=== PATIENT | female | born 1945 | race Caucasian/White ===

== ENCOUNTER → 2018-05-30 13:31 | Outpatient (CLI) | payer MEDICARE, BC, SELFPAY ==
--- NOTE | 2018-05-30 | DI.MG.S_ITS ---
BILATERAL DIGITAL SCREENING MAMMOGRAM 3D/2D WITH CAD: 05/30/2018 CLINICAL: Screening. Comparison is made to exam dated: 08/31/2011 mammogram - [facility]. The tissue of both breasts is heterogeneously dense. This may lower the sensitivity of mammography. Current study was also evaluated with a Computer Aided Detection (CAD) system. No significant masses, calcifications, or other findings are seen in either breast. There has been no significant interval change. IMPRESSION: NEGATIVE There is no mammographic evidence of malignancy. A 1 year screening mammogram is recommended. This exam was interpreted at Station ID: [id number]. NOTE: For mammograms, a report in lay terms will be sent to the patient. Approximately 15% of breast malignancies will not be visualized mammographically. In the management of a palpable breast mass, a negative mammogram must not discourage biopsy of a clinically suspicious lesion. Electronically Signed By: Vishnu garber/katherin:05/31/2018 09:52:47 letter sent: Normal Exam ACR BI-RADS Category 1: Negative 3341F
== END ==
PROVIDERS: PCP Internal Medicine; Visit Provider Internal Medicine
DX: Z12.31 Encounter for screening mammogram for malignant neoplasm of breast (principal); M85.852 Other specified disorders of bone density and structure, left thigh; Z78.0 Asymptomatic menopausal state
CPT/HCPCS: 77063; 77067; 77080

== ENCOUNTER → 2019-06-21 11:55 | Outpatient (CLI) | payer MEDICARE, SELFPAY ==
--- NOTE | 2019-06-21 | DI.MG.S_ITS ---
BILATERAL DIGITAL SCREENING MAMMOGRAM 3D/2D WITH CAD: 06/21/2019 CLINICAL: Routine screening. Comparison is made to exams dated: 05/30/2018 mammogram - [facility] and 08/31/2011 mammogram - [facility]. The tissue of both breasts is heterogeneously dense. This may lower the sensitivity of mammography. Current study was also evaluated with a Computer Aided Detection (CAD) system. No significant masses, calcifications, or other findings are seen in either breast. There has been no significant interval change. IMPRESSION: NEGATIVE There is no mammographic evidence of malignancy. A 1 year screening mammogram is recommended. This exam was interpreted at Station ID: [id number]. NOTE: For mammograms, a report in lay terms will be sent to the patient. Approximately 15% of breast malignancies will not be visualized mammographically. In the management of a palpable breast mass, a negative mammogram must not discourage biopsy of a clinically suspicious lesion. Electronically Signed By: Nathen weaver/katherin:06/21/2019 16:50:02 letter sent: Normal Exam ACR BI-RADS Category 1: Negative 3341F
== END ==
PROVIDERS: PCP Internal Medicine; Visit Provider Internal Medicine
DX: Z12.31 Encounter for screening mammogram for malignant neoplasm of breast (principal)
CPT/HCPCS: 77063; 77067

== ENCOUNTER → 2019-11-24 14:09 | Outpatient (CLI) | payer MEDICARE, SELFPAY ==
[2019-11-26 00:21] LABS: SARS CoV19 IgG Negative (Negative)
== END ==
PROVIDERS: PCP Internal Medicine; Referring Provider Internal Medicine; Visit Provider Internal Medicine
DX: Z03.818 Encounter for observation for suspected exposure to other biological agents ruled out (principal)
CPT/HCPCS: 36415; 86769

== ENCOUNTER → 2020-01-18 14:21 | Outpatient (CLI) | payer MEDICARE, SELFPAY ==
[2020-01-18 16:43] LABS: Blood Urea Nitrogen 31 mg/dL (7-17); Calcium 9.3 mg/dL (8.4-10.2); Carbon Dioxide 26 mmol/L (22-32); Chloride 107 mmol/L (98-107); Estimated Glomerular Filt Rate 29.1 mL/min (>60); Glucose 72 mg/dL (80-110); HEMOLYSIS < 15 (0-50); Potassium 4.7 mmol/L (3.4-5.1); Sodium 138 mmol/L (137-145)
== END ==
PROVIDERS: PCP Internal Medicine; Referring Provider Internal Medicine; Visit Provider Internal Medicine
DX: N18.3 Chronic kidney disease, stage 3 (moderate) (principal)
CPT/HCPCS: 36415; 80048

== ENCOUNTER → 2020-05-24 10:34 | Outpatient (CLI) | payer MEDICARE, SELFPAY ==
[2020-05-24 11:34] LABS: Add Manual Diff / Slide Review NO; Basophils Absolute Auto 100 /uL (0-100); Basophils Percent Auto 0.8 % (0-2); Eosinophils Absolute Auto 500 /uL (0-450); Eosinophils Percent Auto 6.8 % (2-4); Hematocrit 38.8 % (36-46); Lymphocytes Absolute Auto 2100 /uL (1100-4500); Lymphocytes Percent Auto 32.1 % (25-40); Mean Corpuscular HGB Conc 33.6 % (30-36); Mean Corpuscular Hemoglobin 30.1 PG (26-34); Mean Corpuscular Volume 89.5 fL (80-100); Monocytes Absolute Auto 600 /uL (0-900); Monocytes Percent Auto 8.5 % (3-14); Neutrophils Absolute Auto 3500 /uL (1500-7000); Neutrophils Percent Auto 51.8 % (50-75); Platelet Count 201 X10^3/uL (150-400); Red Blood Cell Count 4.33 X10^6/uL (4.0-5.2); Red Cell Distribution Width 13.5 % (11.6-14.8); White Blood Cell Count 6.7 X10^3/uL (4.5-11.0)
[2020-05-24 11:53] LABS: Creatinine Urine Random 83.6 mg/dL
[2020-05-24 11:55] LABS: Alanine Aminotransferase 41 IU/L (<35); Albumin 4.1 g/dL (3.5-5.0); Albumin Globulin Ratio 1.3 (1.0-2.8); Alkaline Phosphatase 79 U/L (38-126); Aspartate Aminotransferase 46 IU/L (14-36); Bilirubin Total 0.5 mg/dL (0.2-1.3); Blood Urea Nitrogen 26 mg/dL (7-17); Calcium 8.9 mg/dL (8.4-10.2); Carbon Dioxide 29 mmol/L (22-32); Chloride 105 mmol/L (98-107); Cholesterol 161 mg/dL (140-199); Globulin 3.1 g/dL (1.7-4.1); Glucose 96 mg/dL (80-110); HDL Cholesterol 45 mg/dL (40-60); HEMOLYSIS < 15 (0-50); LDL Cholesterol Calculated 84 mg/dL (<100); Potassium 4.4 mmol/L (3.4-5.1); Sodium 138 mmol/L (137-145); Total Protein 7.2 g/dL (6.3-8.2); Triglycerides 160 mg/dL (35-150)
[2020-05-24 12:19] LABS: Microalbumi Creatinin Ratio Ur 239.2 ug/mg CR (<30)
== END ==
PROVIDERS: PCP Internal Medicine; Referring Provider Internal Medicine; Visit Provider Internal Medicine
DX: N18.9 Chronic kidney disease, unspecified (principal); I10 Essential (primary) hypertension
CPT/HCPCS: 36415; 80053; 80061; 82043; 82570; 85025

== ENCOUNTER → 2020-06-03 08:02 | Outpatient (CLI) | payer MEDICARE, SELFPAY ==
--- NOTE | 2020-06-03 | DI.US.S_ITS ---
PROCEDURE: US ABDOMEN COMPLETE INDICATIONS: Fatty (change of) liver TECHNIQUE: Real-time scanning was performed of the abdominal and retroperitoneal organs, with image documentation. COMPARISON: None. FINDINGS: Liver: Liver is normal in size and homogeneous in echotexture. Gallbladder: Prior cholecystectomy. Biliary ducts: Intrahepatic bile ducts are non-dilated. Extrahepatic bile duct caliber measures 5.0 mm. Normal is 6-7 mm or less in diameter, or 10 mm or less post-cholecystectomy. Pancreas: Visualized portions of the pancreas are sonographically normal. Spleen: Spleen is normal in size and homogeneous in echotexture. Kidneys: Kidneys are normal in size and echotexture. Right kidney measures 10.5 cm long; left kidney measures 10.3 cm long. No hydronephrosis or right-sided nephrolithiasis. There appears to be a nonobstructive 3 x 6 mm calculus at the lower left renal collecting system margin. No solid masses. There is slight prominence of the central renal collecting system bilaterally but in the range of normal. Aorta: Visualized aorta is normal in caliber at less than 3 cm. Iliacs: Proximal common iliac arteries are normal in caliber at less than 2.5 cm. IVC: Intrahepatic inferior vena cava is patent. Miscellaneous: No free abdominal fluid. IMPRESSION: Nonobstructive lower 3rd renal collecting system calculus, normal renal size and no evidence of definite obstructive etiology for slight prominence of the central renal collecting system bilaterally. Prior cholecystectomy. Currently there is no sign of significant hepatic steatosis. Dictated by: Washington Saenz M.D. on 06/03/2020 at 12:16 Approved by: Washington Saenz M.D. on 06/03/2020 at 12:19
== END ==
PROVIDERS: PCP Internal Medicine; Referring Provider Internal Medicine; Visit Provider Internal Medicine
DX: N20.0 Calculus of kidney (principal); K76.0 Fatty (change of) liver, not elsewhere classified
CPT/HCPCS: 76700

== ENCOUNTER → 2020-07-09 10:48 | Outpatient (CLI) | payer MEDICARE, SELFPAY ==
[2020-07-09 13:40] LABS: Alanine Aminotransferase 38 IU/L (<35); Albumin Globulin Ratio 1.4 (1.0-2.8); Alkaline Phosphatase 75 U/L (38-126); Aspartate Aminotransferase 45 IU/L (14-36); Bilirubin Total 0.4 mg/dL (0.2-1.3); Bilirubin Unconjugated 0.4 mg/dL (0.0-1.1); Globulin 2.8 g/dL (1.7-4.1); HEMOLYSIS < 15 (0-50); Total Protein 6.8 g/dL (6.3-8.2)
== END ==
PROVIDERS: PCP Internal Medicine; Referring Provider Internal Medicine; Visit Provider Internal Medicine
DX: N18.9 Chronic kidney disease, unspecified (principal); K76.0 Fatty (change of) liver, not elsewhere classified
CPT/HCPCS: 36415; 80076

== ENCOUNTER → 2020-11-18 09:49 | Outpatient (CLI) | payer MEDICARE, SELFPAY ==
[2020-11-18 10:43] LABS: Add Manual Diff / Slide Review NO; Basophils Absolute Auto 0 /uL (0-100); Basophils Percent Auto 0.7 % (0-2); Eosinophils Absolute Auto 400 /uL (0-450); Eosinophils Percent Auto 6.5 % (2-4); Hematocrit 39.2 % (36-46); Hemoglobin 13.1 g/dL (12.0-16.0); Lymphocytes Absolute Auto 2100 /uL (1100-4500); Lymphocytes Percent Auto 32.3 % (25-40); Mean Corpuscular HGB Conc 33.4 % (30-36); Mean Corpuscular Hemoglobin 29.8 PG (26-34); Mean Corpuscular Volume 89.1 fL (80-100); Monocytes Absolute Auto 500 /uL (0-900); Neutrophils Absolute Auto 3400 /uL (1500-7000); Neutrophils Percent Auto 52.5 % (50-75); Platelet Count 300 X10^3/uL (150-400); Red Cell Distribution Width 13.1 % (11.6-14.8); White Blood Cell Count 6.4 X10^3/uL (4.5-11.0)
[2020-11-18 11:10] LABS: Erythrocyte Sedimentation Rate 44 MM/HR (0-20)
[2020-11-18 11:16] LABS: Alanine Aminotransferase 86 IU/L (<35); Albumin 4.2 g/dL (3.5-5.0); Albumin Globulin Ratio 1.3 (1.0-2.8); Alkaline Phosphatase 120 U/L (38-126); Aspartate Aminotransferase 60 IU/L (14-36); BUN Creatinine Ratio 17.3 (6-22); Bilirubin Total 0.3 mg/dL (0.2-1.3); Blood Urea Nitrogen 27 mg/dL (7-17); C-Reactive Protein Quant 0.6 mg/dL (<1.0); Calcium 9.3 mg/dL (8.4-10.2); Carbon Dioxide 25 mmol/L (22-32); Chloride 105 mmol/L (98-107); Estimated Glomerular Filt Rate 32.6 mL/min (>60); Globulin 3.3 g/dL (1.7-4.1); Glucose 95 mg/dL (80-110); HEMOLYSIS < 15 (0-50); Potassium 4.5 mmol/L (3.4-5.1); Sodium 137 mmol/L (137-145); Total Protein 7.5 g/dL (6.3-8.2)
[2020-11-18 12:37] LABS: RBC Urine None Seen (0-5/HPF)
[2020-11-18 12:52] LABS: Appearance Urine UA CLEAR; Bilirubin Urine UA NEGATIVE (NEGATIVE); Color Urine UA YELLOW; Glucose Urine UA NEGATIVE (Negative); Ketones Urine UA NEGATIVE (NEGATIVE); Leukocyte Esterase Urine UA NEGATIVE (NEGATIVE); Nitrite Urine UA NEGATIVE (Negative); Occult Blood Urine UA NEGATIVE (Negative); Protein Urine UA 2+ (Negative); Urobilinogen Urine UA 0.2 E.U./dL (0.2)
[2020-11-18 13:06] LABS: Bacteria Urine Few (2-10); Culture Indicated Urine Specimen Cultured; Squamous Epithelial Cell Urine 0-1 /HPF (0-5/HPF); WBC Urine 0-1/HPF (0-5/HPF); pH Urine UA 5.5 (4.5-8.0)
[2020-11-18 15:16] LABS: Creatinine Urine Random 101.1 mg/dL; Protein (Total) Urine Random 64 mg/dL (0-12); Protein Creatinine Ratio Urine 0.63 GRAM/24H
[2020-11-20 10:35] LABS: Alpha-1 Globulin, Ur 1.9 % (.); Gamma Globulin, Ur 3.8 % (.); M-Spike % Not Observed % (Not Observed); Urine Total Protein 53.3 mg/dL (Not Estab.)
[2020-11-22 04:08] LABS: Complement C3 124 mg/dL (82-167)
[2020-11-25 14:35] LABS: Albumin 3.6 g/dL (2.9-4.4); Alpha-1-Globulin 0.2 g/dL (0.0-0.4); Alpha-2-Globulin 0.9 g/dL (0.4-1.0); Gamma Globulin 0.9 g/dL (0.4-1.8); Protein, Total 6.6 g/dL (6.0-8.5)
== END ==
PROVIDERS: PCP Internal Medicine; Referring Provider Internal Medicine Rheumatology; Visit Provider Internal Medicine Rheumatology
DX: M35.00 Sjogren syndrome, unspecified (principal)
CPT/HCPCS: 36415; 80053; 81001; 82570; 84155; 84156; 84165; 84166; 85025; 85651; 86140; 86160; 87086

== ENCOUNTER → 2020-12-11 10:55 | Outpatient (CLI) | payer MEDICARE, SELFPAY ==
[2020-12-11 12:30] LABS: Alanine Aminotransferase 64 IU/L (<35); Albumin 4.1 g/dL (3.5-5.0); Albumin Globulin Ratio 1.4 (1.0-2.8); Alkaline Phosphatase 84 U/L (38-126); Aspartate Aminotransferase 55 IU/L (14-36); BUN Creatinine Ratio 15.4 (6-22); Bilirubin Total 0.4 mg/dL (0.2-1.3); Blood Urea Nitrogen 25 mg/dL (7-17); Calcium 9.4 mg/dL (8.4-10.2); Carbon Dioxide 25 mmol/L (22-32); Chloride 105 mmol/L (98-107); Estimated Glomerular Filt Rate 31.1 mL/min (>60); Globulin 2.9 g/dL (1.7-4.1); Glucose 91 mg/dL (80-110); HEMOLYSIS < 15 (0-50); Potassium 4.7 mmol/L (3.4-5.1); Sodium 137 mmol/L (137-145)
== END ==
PROVIDERS: PCP Internal Medicine; Referring Provider Internal Medicine; Visit Provider Internal Medicine
DX: K76.0 Fatty (change of) liver, not elsewhere classified (principal)
CPT/HCPCS: 36415; 80053

== ENCOUNTER → 2021-02-11 09:36 | Outpatient (CLI) | payer MEDICARE, SELFPAY ==
[2021-02-11 09:53] LABS: Bacteria Urine None Seen; RBC Urine None Seen (0-5/HPF)
[2021-02-11 10:27] LABS: Add Manual Diff / Slide Review NO; Basophils Absolute Auto 0 /uL (0-100); Basophils Percent Auto 0.8 % (0-2); Eosinophils Absolute Auto 500 /uL (0-450); Eosinophils Percent Auto 9.2 % (2-4); Hematocrit 40.7 % (36-46); Hemoglobin 13.3 g/dL (12.0-16.0); Lymphocytes Absolute Auto 2000 /uL (1100-4500); Lymphocytes Percent Auto 36.6 % (25-40); Mean Corpuscular HGB Conc 32.7 % (30-36); Mean Corpuscular Hemoglobin 29.7 PG (26-34); Mean Corpuscular Volume 90.8 fL (80-100); Monocytes Absolute Auto 600 /uL (0-900); Monocytes Percent Auto 10.4 % (3-14); Neutrophils Absolute Auto 2400 /uL (1500-7000); Platelet Count 196 X10^3/uL (150-400); Red Blood Cell Count 4.48 X10^6/uL (4.0-5.2); Red Cell Distribution Width 13.6 % (11.6-14.8); White Blood Cell Count 5.6 X10^3/uL (4.5-11.0)
[2021-02-11 10:42] LABS: Alanine Aminotransferase 31 IU/L (<35); Albumin Globulin Ratio 1.4 (1.0-2.8); Alkaline Phosphatase 63 U/L (38-126); Aspartate Aminotransferase 40 IU/L (14-36); BUN Creatinine Ratio 16.9 (6-22); Bilirubin Total 0.4 mg/dL (0.2-1.3); Blood Urea Nitrogen 25 mg/dL (7-17); C-Reactive Protein Quant < 0.5 mg/dL (<1.0); Calcium 9.2 mg/dL (8.4-10.2); Carbon Dioxide 26 mmol/L (22-32); Chloride 106 mmol/L (98-107); Estimated Glomerular Filt Rate 34.6 mL/min (>60); Globulin 2.9 g/dL (1.7-4.1); Glucose 93 mg/dL (80-110); HEMOLYSIS < 15 (0-50); Potassium 4.4 mmol/L (3.4-5.1); Sodium 139 mmol/L (137-145); Total Protein 6.9 g/dL (6.3-8.2)
[2021-02-11 10:44] LABS: Erythrocyte Sedimentation Rate 19 MM/HR (0-20)
[2021-02-11 12:55] LABS: Appearance Urine UA CLEAR; Bilirubin Urine UA NEGATIVE (NEGATIVE); Color Urine UA YELLOW; Glucose Urine UA NEGATIVE (Negative); Ketones Urine UA NEGATIVE (NEGATIVE); Leukocyte Esterase Urine UA NEGATIVE (NEGATIVE); Nitrite Urine UA NEGATIVE (Negative); Occult Blood Urine UA TRACE-LYSED (Negative); Protein Urine UA 2+ (Negative); Urobilinogen Urine UA 0.2 E.U./dL (0.2)
[2021-02-11 13:08] LABS: Culture Indicated Urine Cult Not Indicated; Squamous Epithelial Cell Urine 0-1 /HPF (0-5/HPF); WBC Urine 0-1/HPF (0-5/HPF)
[2021-02-11 15:07] LABS: Creatinine Urine Random 66.9 mg/dL; Protein (Total) Urine Random 78 mg/dL (0-12); Protein Creatinine Ratio Urine 1.16 GRAM/24H
[2021-02-12 05:48] LABS: Complement C3 121 mg/dL (82-167)
[2021-02-12 15:14] LABS: Calcium 9.3 mg/dL (8.7-10.3); Parathyroid Hormone, Intact 98 pg/mL (15-65)
[2021-02-13 11:39] LABS: Albumin 3.6 g/dL (2.9-4.4); Alpha-1-Globulin 0.2 g/dL (0.0-0.4); Alpha-2-Globulin 0.8 g/dL (0.4-1.0); Globulin Total 2.9 g/dL (2.2-3.9); Protein, Total 6.5 g/dL (6.0-8.5)
== END ==
PROVIDERS: PCP Internal Medicine; Referring Provider Internal Medicine Rheumatology; Visit Provider Internal Medicine Rheumatology
DX: M35.00 Sjogren syndrome, unspecified (principal); I10 Essential (primary) hypertension; N25.81 Secondary hyperparathyroidism of renal origin
CPT/HCPCS: 36415; 80053; 81001; 82310; 82570; 83970; 84155; 84156; 84165; 85025; 85651; 86140; 86160

== ENCOUNTER → 2021-05-21 09:58 | Outpatient (CLI) | payer MEDICARE, SELFPAY ==
[2021-05-21 10:53] LABS: Add Manual Diff / Slide Review NO; Basophils Absolute Auto 100 /uL (0-100); Basophils Percent Auto 1.1 % (0-2); Eosinophils Absolute Auto 400 /uL (0-450); Eosinophils Percent Auto 7.4 % (2-4); Hematocrit 39.5 % (36-46); Lymphocytes Absolute Auto 1800 /uL (1100-4500); Lymphocytes Percent Auto 32.9 % (25-40); Mean Corpuscular HGB Conc 32.8 % (30-36); Mean Corpuscular Hemoglobin 29.4 PG (26-34); Mean Corpuscular Volume 89.6 fL (80-100); Monocytes Absolute Auto 700 /uL (0-900); Monocytes Percent Auto 12.2 % (3-14); Neutrophils Absolute Auto 2500 /uL (1500-7000); Neutrophils Percent Auto 46.4 % (50-75); Platelet Count 200 X10^3/uL (150-400); Red Blood Cell Count 4.41 X10^6/uL (4.0-5.2); Red Cell Distribution Width 13.2 % (11.6-14.8); White Blood Cell Count 5.5 X10^3/uL (4.5-11.0)
[2021-05-21 11:18] LABS: Erythrocyte Sedimentation Rate 21 MM/HR (0-20)
[2021-05-21 11:21] LABS: Alanine Aminotransferase 35 IU/L (<35); Albumin 4.1 g/dL (3.5-5.0); Albumin Globulin Ratio 1.6 (1.0-2.8); Alkaline Phosphatase 71 U/L (38-126); Aspartate Aminotransferase 41 IU/L (14-36); Bilirubin Total 0.5 mg/dL (0.2-1.3); Bilirubin Unconjugated 0.4 mg/dL (0.0-1.1); C-Reactive Protein Quant < 0.5 mg/dL (<1.0); Globulin 2.5 g/dL (1.7-4.1); HEMOLYSIS < 15 (0-50); Total Protein 6.6 g/dL (6.3-8.2)
[2021-05-22 04:08] LABS: Complement C3 121 mg/dL (82-167)
[2021-05-23 12:07] LABS: Anti Mitochondrial ABY IGG <20.0 Units (0.0-20.0); Smooth Muscle Antibody 11 Units (0-19)
== END ==
PROVIDERS: PCP Internal Medicine; Referring Provider Internal Medicine Rheumatology; Visit Provider Internal Medicine Rheumatology
DX: M35.00 Sjogren syndrome, unspecified (principal); R74.01 Elevation of levels of liver transaminase levels
CPT/HCPCS: 36415; 80076; 83516; 85025; 85651; 86140; 86160

== ENCOUNTER → 2021-06-17 14:30 | Outpatient (CLI) | payer MEDICARE, SELFPAY ==
[2021-06-17 15:28] LABS: BUN Creatinine Ratio 17.8 (6-22); Blood Urea Nitrogen 32 mg/dL (7-17); Calcium 9.6 mg/dL (8.4-10.2); Carbon Dioxide 29 mmol/L (22-32); Chloride 102 mmol/L (98-107); Estimated Glomerular Filt Rate 27.6 mL/min (>60); Glucose 77 mg/dL (80-110); HEMOLYSIS < 15 (0-50); Phosphorous 5.5 mg/dL (2.8-4.1); Potassium 4.6 mmol/L (3.4-5.1); Sodium 140 mmol/L (137-145)
[2021-06-17 16:39] LABS: Creatinine Urine Random 104.5 mg/dL; Protein (Total) Urine Random 71 mg/dL (0-12); Protein Creatinine Ratio Urine 0.67 GRAM/24H
[2021-06-17 17:02] LABS: Microalbumi Creatinin Ratio Ur 381.8 ug/mg CR (<30); Microalbumin Urine Random 39.9 mg/dL (0-1.6)
[2021-06-18 23:54] LABS: Calcium 8.7 mg/dL (8.7-10.3); Parathyroid Hormone, Intact 71 pg/mL (15-65)
== END ==
PROVIDERS: PCP Internal Medicine; Referring Provider Internal Medicine Nephrology; Visit Provider Internal Medicine Nephrology
DX: N18.4 Chronic kidney disease, stage 4 (severe) (principal)
CPT/HCPCS: 36415; 80048; 82043; 82310; 82570; 83970; 84100; 84156

== ENCOUNTER → 2021-08-25 11:38 | Outpatient (CLI) | payer MEDICARE, SELFPAY ==
--- NOTE | 2021-08-25 | DI.RAD.S_ITS ---
PROCEDURE: XR LUMBAR SPINE 2-3V INDICATIONS: BILATERIAL HIP PAIN TECHNIQUE: 3 views of the lumbar spine were acquired. COMPARISON: None. FINDINGS: Bones: 5 [id number] vertebrae are present. There is normal bony alignment. No vertebral body compression fractures. No suspicious bony lesions. Mild degenerative disc disease and arthropathy noted in lower lumbar spine Soft tissues: Overlying bowel gas pattern is normal. No suspicious soft tissue calcifications. Dense atherosclerotic aortic vascular calcification. Surgical clips present in the right upper quadrant. IMPRESSION: Mild degenerative disc disease and arthropathy in the lower lumbar spine Dense aortic atherosclerotic vascular calcification without aneurysm. Approved by: Willis Retana M.D. on 08/25/2021 at 14:09
--- NOTE | 2021-08-25 | DI.RAD.S_ITS ---
PROCEDURE: XR HIP W PEL IF DONE LT MIN 4V INDICATIONS: BILATERAL HIP PAIN TECHNIQUE: Two views of each hip were obtained COMPARISON: None. FINDINGS: Bones: Mild bilateral acetabular joint space narrowing and subchondral sclerosis noted. No evidence of fracture. Small degenerative enthesophytes noted involving the greater trochanters, right greater than left. Soft tissues: Unremarkable IMPRESSION: Mild degenerative changes, right greater than left Approved by: Willis Retana M.D. on 08/25/2021 at 14:11
== END ==
PROVIDERS: PCP Internal Medicine; Referring Provider Internal Medicine Rheumatology; Visit Provider Internal Medicine Rheumatology
DX: M51.36 Other intervertebral disc degeneration, lumbar region (principal); M47.813 Spondylosis without myelopathy or radiculopathy, cervicothoracic region; I70.0 Atherosclerosis of aorta; M25.551 Pain in right hip; M25.552 Pain in left hip
CPT/HCPCS: 72100; 73521

== ENCOUNTER → 2021-08-28 11:33 | Outpatient (CLI) | payer MEDICARE, SELFPAY ==
[2021-08-28 12:47] LABS: Add Manual Diff / Slide Review NO; Basophils Absolute Auto 100 /uL (0-100); Basophils Percent Auto 0.9 % (0-2); Eosinophils Absolute Auto 400 /uL (0-450); Eosinophils Percent Auto 6.4 % (2-4); Hematocrit 38.9 % (36-46); Hemoglobin 13.1 g/dL (12.0-16.0); Lymphocytes Absolute Auto 2000 /uL (1100-4500); Lymphocytes Percent Auto 32.4 % (25-40); Mean Corpuscular HGB Conc 33.6 % (30-36); Mean Corpuscular Hemoglobin 29.8 PG (26-34); Mean Corpuscular Volume 88.7 fL (80-100); Monocytes Absolute Auto 500 /uL (0-900); Monocytes Percent Auto 8.7 % (3-14); Neutrophils Absolute Auto 3100 /uL (1500-7000); Neutrophils Percent Auto 51.6 % (50-75); Platelet Count 192 X10^3/uL (150-400); Red Blood Cell Count 4.39 X10^6/uL (4.0-5.2); Red Cell Distribution Width 13.3 % (11.6-14.8)
[2021-08-28 13:08] LABS: Erythrocyte Sedimentation Rate 25 MM/HR (0-20)
[2021-08-28 13:16] LABS: Alanine Aminotransferase 35 IU/L (<35); Albumin 4.2 g/dL (3.5-5.0); Albumin Globulin Ratio 1.6 (1.0-2.8); Alkaline Phosphatase 73 U/L (38-126); Aspartate Aminotransferase 45 IU/L (14-36); BUN Creatinine Ratio 14.7 (6-22); Bilirubin Total 0.5 mg/dL (0.2-1.3); Blood Urea Nitrogen 23 mg/dL (7-17); C-Reactive Protein Quant < 0.5 mg/dL (<1.0); Calcium 9.1 mg/dL (8.4-10.2); Carbon Dioxide 28 mmol/L (22-32); Chloride 105 mmol/L (98-107); Estimated Glomerular Filt Rate 32.5 mL/min (>60); Globulin 2.7 g/dL (1.7-4.1); Glucose 96 mg/dL (80-110); HEMOLYSIS < 15 (0-50); Potassium 4.6 mmol/L (3.4-5.1); Sodium 138 mmol/L (137-145); Total Protein 6.9 g/dL (6.3-8.2)
[2021-08-29 15:42] LABS: Albumin 3.7 g/dL (2.9-4.4); Alpha-1-Globulin 0.2 g/dL (0.0-0.4); Alpha-2-Globulin 0.8 g/dL (0.4-1.0); Gamma Globulin 0.9 g/dL (0.4-1.8); Globulin Total 2.9 g/dL (2.2-3.9); Protein, Total 6.6 g/dL (6.0-8.5)
== END ==
PROVIDERS: PCP Internal Medicine; Referring Provider Internal Medicine Rheumatology; Visit Provider Internal Medicine Rheumatology
DX: M35.00 Sjogren syndrome, unspecified (principal)
CPT/HCPCS: 36415; 80053; 84155; 84165; 85025; 85651; 86140

== ENCOUNTER → 2021-10-03 09:06 | Outpatient (CLI) | payer MEDICARE, SELFPAY ==
[2021-10-03 11:39] LABS: Creatinine Urine Random 101.1 mg/dL
[2021-10-03 12:12] LABS: Microalbumi Creatinin Ratio Ur 502.4 ug/mg CR (<30); Microalbumin Urine Random 50.8 mg/dL (0-1.6)
[2021-10-04 08:45] LABS: Parathyroid Hormone, Intact 84 pg/mL (15-65)
== END ==
PROVIDERS: PCP Internal Medicine; Referring Provider Internal Medicine Nephrology; Visit Provider Internal Medicine Nephrology
DX: N18.30 Chronic kidney disease, stage 3 unspecified (principal)
CPT/HCPCS: 36415; 82043; 82310; 82570; 83970

== ENCOUNTER → 2022-02-25 09:48 | Outpatient (CLI) | payer MEDICARE, SELFPAY ==
[2022-02-25 10:39] LABS: Add Manual Diff / Slide Review NO; Basophils Absolute Auto 0 /uL (0-100); Basophils Percent Auto 0.5 % (0-2); Eosinophils Absolute Auto 400 /uL (0-450); Eosinophils Percent Auto 8.4 % (2-4); Hematocrit 37.6 % (36-46); Hemoglobin 12.9 g/dL (12.0-16.0); Lymphocytes Absolute Auto 1800 /uL (1100-4500); Lymphocytes Percent Auto 34.9 % (25-40); Mean Corpuscular HGB Conc 34.2 % (30-36); Mean Corpuscular Hemoglobin 30.3 PG (26-34); Mean Corpuscular Volume 88.6 fL (80-100); Monocytes Absolute Auto 500 /uL (0-900); Monocytes Percent Auto 10.5 % (3-14); Neutrophils Absolute Auto 2300 /uL (1500-7000); Neutrophils Percent Auto 45.7 % (50-75); Platelet Count 185 X10^3/uL (150-400); Red Blood Cell Count 4.24 X10^6/uL (4.0-5.2); Red Cell Distribution Width 13.7 % (11.6-14.8); White Blood Cell Count 5.1 X10^3/uL (4.5-11.0)
[2022-02-25 10:55] LABS: Erythrocyte Sedimentation Rate 23 MM/HR (0-20)
[2022-02-25 11:04] LABS: Alanine Aminotransferase 46 IU/L (<35); Albumin 3.9 g/dL (3.5-5.0); Albumin Globulin Ratio 1.4 (1.0-2.8); Alkaline Phosphatase 69 U/L (38-126); Aspartate Aminotransferase 51 IU/L (14-36); BUN Creatinine Ratio 15.4 (6-22); Bilirubin Total 0.5 mg/dL (0.2-1.3); Blood Urea Nitrogen 25 mg/dL (7-17); C-Reactive Protein Quant < 0.5 mg/dL (<1.0); Calcium 8.7 mg/dL (8.4-10.2); Carbon Dioxide 28 mmol/L (22-32); Chloride 105 mmol/L (98-107); Estimated Glomerular Filt Rate 33 mL/min (>60); Globulin 2.8 g/dL (1.7-4.1); Glucose 96 mg/dL (80-110); HEMOLYSIS < 15 (0-50); Potassium 4.8 mmol/L (3.4-5.1); Sodium 139 mmol/L (137-145); Total Protein 6.7 g/dL (6.3-8.2)
[2022-02-27 14:16] LABS: Albumin 3.7 g/dL (2.9-4.4); Alpha-1-Globulin 0.1 g/dL (0.0-0.4); Alpha-2-Globulin 0.7 g/dL (0.4-1.0); Globulin Total 2.8 g/dL (2.2-3.9); Protein, Total 6.5 g/dL (6.0-8.5)
== END ==
PROVIDERS: PCP Internal Medicine; Referring Provider Internal Medicine Rheumatology; Visit Provider Internal Medicine Rheumatology
DX: M35.00 Sjogren syndrome, unspecified (principal)
CPT/HCPCS: 36415; 80053; 84155; 84165; 85025; 85651; 86140

== ENCOUNTER → 2022-06-19 11:51 | Outpatient (CLI) | payer MEDICARE, SELFPAY ==
[2022-06-19 12:49] LABS: Add Manual Diff / Slide Review NO; Basophils Absolute Auto 100 /uL (0-100); Basophils Percent Auto 0.9 % (0-2); Eosinophils Absolute Auto 600 /uL (0-450); Eosinophils Percent Auto 9.4 % (2-4); Hematocrit 40.9 % (36-46); Hemoglobin 13.6 g/dL (12.0-16.0); Lymphocytes Absolute Auto 2200 /uL (1100-4500); Lymphocytes Percent Auto 35.6 % (25-40); Mean Corpuscular HGB Conc 33.2 % (30-36); Mean Corpuscular Hemoglobin 29.6 PG (26-34); Mean Corpuscular Volume 89.1 fL (80-100); Monocytes Absolute Auto 500 /uL (0-900); Neutrophils Absolute Auto 2700 /uL (1500-7000); Neutrophils Percent Auto 45.1 % (50-75); Platelet Count 187 X10^3/uL (150-400); Red Blood Cell Count 4.59 X10^6/uL (4.0-5.2); Red Cell Distribution Width 13.3 % (11.6-14.8); White Blood Cell Count 6.1 X10^3/uL (4.5-11.0)
[2022-06-19 13:00] LABS: Albumin 4.1 g/dL (3.5-5.0); BUN Creatinine Ratio 15.3 (6-22); Blood Urea Nitrogen 27 mg/dL (7-17); Calcium 8.7 mg/dL (8.4-10.2); Carbon Dioxide 25 mmol/L (22-32); Chloride 102 mmol/L (98-107); Estimated Glomerular Filt Rate 30 mL/min (>60); Glucose 94 mg/dL (80-110); HEMOLYSIS < 15 (0-50); Phosphorous 4.7 mg/dL (2.8-4.1); Potassium 4.5 mmol/L (3.4-5.1); Sodium 138 mmol/L (137-145)
[2022-06-19 16:19] LABS: Creatinine Urine Random 66.1 mg/dL
[2022-06-20 09:30] LABS: Calcium 8.9 mg/dL (8.7-10.3); Parathyroid Hormone, Intact 98 pg/mL (15-65)
[2022-06-29 18:14] LABS: 1,25-Dihydroxy, Vitamin D-2 <10 pg/mL (.)
== END ==
PROVIDERS: PCP Internal Medicine; Referring Provider Internal Medicine Nephrology; Visit Provider Internal Medicine Nephrology
DX: N18.4 Chronic kidney disease, stage 4 (severe) (principal)
CPT/HCPCS: 36415; 80069; 82043; 82310; 82570; 82652; 83970; 85025

== ENCOUNTER → 2022-12-17 11:01 | Outpatient (CLI) | payer MEDICARE, SELFPAY ==
[2022-12-17 12:04] LABS: Add Manual Diff / Slide Review NO; Basophils Absolute Auto 100 /uL (0-100); Basophils Percent Auto 1.5 % (0-2); Eosinophils Absolute Auto 200 /uL (0-450); Eosinophils Percent Auto 3.4 % (2-4); Hematocrit 36.4 % (36-46); Hemoglobin 12.2 g/dL (12.0-16.0); Lymphocytes Absolute Auto 1800 /uL (1100-4500); Lymphocytes Percent Auto 37.2 % (25-40); Mean Corpuscular HGB Conc 33.5 % (30-36); Mean Corpuscular Volume 89.3 fL (80-100); Monocytes Absolute Auto 700 /uL (0-900); Monocytes Percent Auto 13.3 % (3-14); Neutrophils Absolute Auto 2200 /uL (1500-7000); Neutrophils Percent Auto 44.6 % (50-75); Platelet Count 483 X10^3/uL (150-400); Red Blood Cell Count 4.07 X10^6/uL (4.0-5.2); Red Cell Distribution Width 13.3 % (11.6-14.8); White Blood Cell Count 4.9 X10^3/uL (4.5-11.0)
[2022-12-17 12:24] LABS: Alanine Aminotransferase 42 IU/L (<35); Albumin 3.6 g/dL (3.5-5.0); Albumin Globulin Ratio 1.2 (1.0-2.8); Alkaline Phosphatase 156 U/L (38-126); Aspartate Aminotransferase 30 IU/L (14-36); BUN Creatinine Ratio 15.9 (6-22); Bilirubin Total 0.5 mg/dL (0.2-1.3); Blood Urea Nitrogen 30 mg/dL (7-17); C-Reactive Protein Quant 1.2 mg/dL (<1.0); Calcium 8.8 mg/dL (8.4-10.2); Carbon Dioxide 26 mmol/L (22-32); Chloride 102 mmol/L (98-107); Estimated Glomerular Filt Rate 27 mL/min (>60); Globulin 3.1 g/dL (1.7-4.1); Glucose 98 mg/dL (80-110); HEMOLYSIS < 15 (0-50); Potassium 4.9 mmol/L (3.4-5.1); Sodium 136 mmol/L (137-145); Total Protein 6.7 g/dL (6.3-8.2)
[2022-12-17 12:29] LABS: Erythrocyte Sedimentation Rate 82 MM/HR (0-20)
[2022-12-22 09:36] LABS: Alpha-1-Globulin 0.2 g/dL (0.0-0.4); Alpha-2-Globulin 1.1 g/dL (0.4-1.0); Gamma Globulin 1.1 g/dL (0.4-1.8); Globulin Total 3.4 g/dL (2.2-3.9); Protein, Total 6.4 g/dL (6.0-8.5)
== END ==
PROVIDERS: PCP Internal Medicine; Referring Provider Internal Medicine Rheumatology; Visit Provider Internal Medicine Rheumatology
DX: M35.00 Sjogren syndrome, unspecified (principal)
CPT/HCPCS: 36415; 80053; 84155; 84165; 85025; 85651; 86140

== ENCOUNTER → 2023-02-23 11:34 | Outpatient (CLI) | payer MEDICARE, SELFPAY ==
--- NOTE | 2023-02-23 | DI.RAD.S_ITS ---
Bone Density Report Name: BONITA PRICE Age: 77 Sex: Female Ethnicity: White Date of : 1945 Indication: postmenopausal; screening for osteoporosis; Referring Provider: LASHAWN DICKENS Study: Bone densitometry was performed. Exam Date: February 23, 2023 Accession number: [id number] Bone Density: Region BMD T-score Z-score Classification AP Spine(L1-L4) 1.163 1.1 3.5 Normal Femoral Neck (Left) 0.639 -1.9 0.2 Osteopenia Total Hip (Left) 0.783 -1.3 0.5 Osteopenia Femoral Neck (Right) 0.662 -1.7 0.4 Osteopenia Total Hip (Right) 0.904 -0.3 1.5 Normal Total Hip Mean 0.843 -0.8 1.0 Normal World Health Organization criteria for BMD impression classify patients as: Normal (T-score at or above -1.0), Osteopenia (T-score between -1.0 and -2.5), or Osteoporosis (T-score at or below -2.5). 10-year Fracture Risk(1): Major Osteoporotic Fracture 13% Hip Fracture 3.0% Reported Risk Factors: [place] (), Neck BMD=0.639, BMI=25.6 (1) FRAX(R) Version 3.08. Fracture probability calculated for an untreated patient. Fracture probability may be lower if the patient has received treatment. Previous Exams: -- Region Exam Age BMD T-score BMD Change BMD Change Date g/cm2 vs Baseline vs Previous -- AP Spine (L1-L4) 02/23/2023 77 1.163 1.1 -0.082 (-6.6%)# -0.082 (-6.6%)# 05/30/2018 72 1.245 1.8 Total Hip(Left) 02/23/2023 77 0.783 -1.3 -0.046 (-5.6%)# -0.046 (-5.6%)# 05/30/2018 72 0.829 -0.9 Total Hip(Right) 02/23/2023 77 0.904 -0.3 0.053 (6.2%)# 0.053 (6.2%)# 05/30/2018 72 0.852 -0.7 -- *Denotes significance at 95% confidence level, LSC for AP Spine = 0.022 g/cm2, LSC for Total Hip = 0.027 g/cm2 # Denotes dissimilar scan types or analysis methods Impression: The patient has low bone mass, based on the Left Femoral Neck T-score. The patient has an estimated ten-year risk of hip fracture of 3% and an estimated ten-year risk of major fracture of 13%, based on the WHO FRAX algorithm. No significant bone loss was observed. Discussion: BONE DENSITY IS LOW AT ONE OR MORE SKELETAL SITES. THE PATIENT'S BMD AND CLINICAL RISK FACTORS CONTRIBUTE TO THIS PATIENT'S INCREASED RISK OF FRACTURE. This patient's lowest T-score is low at one or more skeletal sites. It meets the World Health Organization's (WHO) criteria for low bone mass (T-score between -1.0 and -2.5). The patient's 10-year risk of hip fracture as calculated by FRAX exceeds the threshold where pharmacological therapy is recommended by the National Osteoporosis Foundation (NOF). However, all treatment decisions require clinical judgment and consideration of individual patient factors, including patient preferences, comorbidities, previous drug use, risk factors not captured in the FRAX model (e.g., frailty, falls, vitamin D deficiency, increased bone turnover, interval significant decline in bone density) and possible under or overestimation of fracture risk by FRAX. The patient should follow a healthful lifestyle (good nutrition with adequate calcium and vitamin D, and appropriate weight-bearing exercise). Follow-Up: Consider a repeat BMD and Vertebral Fracture Assessment (VFA) exam in 2 years or sooner if medically necessary, to reassess this patient's status. Reported by: HUSSAIN POWER MD on 02/23/2023 12:01:00 PM.
== END ==
PROVIDERS: PCP Internal Medicine; Referring Provider Internal Medicine Rheumatology; Visit Provider Internal Medicine Rheumatology
DX: M85.852 Other specified disorders of bone density and structure, left thigh (principal); Z13.820 Encounter for screening for osteoporosis; Z78.0 Asymptomatic menopausal state
CPT/HCPCS: 77080

== ENCOUNTER → 2023-03-01 14:49 | Outpatient (CLI) | payer MEDICARE, SELFPAY ==
[2023-03-01 15:44] LABS: Creatinine Urine Random 88.3 mg/dL; Protein (Total) Urine Random 103 mg/dL (0-12); Protein Creatinine Ratio Urine 1.16 GRAM/24H
[2023-03-01 16:26] LABS: Microalbumi Creatinin Ratio Ur 588.9 ug/mg CR (<30)
== END ==
PROVIDERS: PCP Internal Medicine; Referring Provider Internal Medicine Nephrology; Visit Provider Internal Medicine Nephrology
DX: N18.31 Chronic kidney disease, stage 3a (principal)
CPT/HCPCS: 36415; 82043; 82570; 84156

== ENCOUNTER → 2023-04-08 10:50 | Outpatient (CLI) | payer MEDICARE, SELFPAY ==
[2023-04-08 14:59] LABS: BUN Creatinine Ratio 17.5 (6-22); Blood Urea Nitrogen 31 mg/dL (7-17); Calcium 9.6 mg/dL (8.4-10.2); Carbon Dioxide 23 mmol/L (22-32); Chloride 105 mmol/L (98-107); Estimated Glomerular Filt Rate 30 mL/min (>60); Glucose 95 mg/dL (80-110); HEMOLYSIS < 15 (0-50); Potassium 4.4 mmol/L (3.4-5.1); Sodium 137 mmol/L (137-145)
== END ==
PROVIDERS: PCP Internal Medicine; Referring Provider Internal Medicine Nephrology; Visit Provider Internal Medicine Nephrology
DX: N17.9 Acute kidney failure, unspecified (principal)
CPT/HCPCS: 36415; 80048

== ENCOUNTER 2023-04-29 09:45 | Day surgery (SDC) | payer MEDICARE, SELFPAY ==
--- NOTE | 2023-04-29 | PATH_ITS ---
[facility] Accession Number: [id number] No. of containers..01 Tissue . 01 Material submitted: . colon - CECAL POLYP . 01 Diagnosis: COLON, CECUM, POLYP BIOPSY: - Tubular adenoma TXN 05/04/2023 1504 Local . 01 Electronically signed: . Jamal Talley MD, Pathologist NPI- [id number] . 01 Gross description: . CECAL POLYP: Received in formalin are 2 fragment(s) of arceo, soft tissue measuring 0.2 x 0.2 x 0.1 cm to 0.3 x 0.3 x 0.2 cm submitted entirely in 1 cassette(s) /CHANTALE 04/30/2023 1851 Local . 01 Pathologist provided ICD-10: Z12.11 . 01 CPT . 350899 Specimen Comment: A courtesy copy of this report has been sent to [phone] Performed at: 01 [facility] [address] [place] [address], [place], [place] [id number] MD Roman Esquivel MD Phone: [phone]
[2023-04-29 11:09] VITALS: BP 168/73; PULSE 79; RESP 16; TEMP 36.3; O2SAT 98; BMI 25.4
[2023-04-29] MEDS: LACTATED RINGERS 1,000 ML 100 ML IV (11:09)
--- NOTE | 2023-04-29 11:22 | PM.HP.1 ---
History of Present Illness History of Present Illness Date Patient Seen: 04/29/23 Time Patient Seen: 11:22 Chief complaint: Screening Colonoscopy Narrative: Arin is a 77-year-old woman who is here for colonoscopy. Her last one was about 5 years ago and she did not have polyps. She believes she has never had polyps in fact. She has no known family history of colon cancer. [facility] Medical History (Updated 04/29/23 @ 11:23 by Kevin Sebastian MD) Hyperparathyroidism, secondary renal CKD (chronic kidney disease) stage 4, GFR 15-29 ml/min Rosacea Sjogren's syndrome RLS (restless legs syndrome) Mixed hyperlipidemia Essential hypertension Chronic anticoagulation Paroxysmal atrial fibrillation Osteopenia Social History Smoking Status: Never smoker Meds Home Medications and Allergies Home Medications Medication Instructions Recorded Confirmed Type amlodipine 5 mg tablet 5 mg PO DAILY 03/10/23 04/29/23 History apixaban 5 mg tablet (Eliquis) 5 mg PO BID 03/10/23 04/29/23 History atorvastatin 10 mg tablet 10 mg PO DAILY #90 tabs 03/10/23 04/29/23 Rx calcitriol 1 mcg/mL oral solution 1 mcg PO DAILY 03/10/23 04/29/23 History carbidopa 25 mg-levodopa 100 mg 1 tab PO BEDTIME PRN 03/10/23 03/10/23 History tablet ezetimibe 10 mg tablet 10 mg PO DAILY #90 tabs 03/10/23 04/29/23 Rx metoprolol succinate 25 mg 25 mg PO DAILY 03/10/23 03/10/23 History tablet,extended release 24 hr potassium citrate 15 mEq (1,620 15 meq PO BID 03/10/23 04/29/23 History mg) tablet,extended release pregabalin 25 mg capsule 25 mg PO BEDTIME 03/10/23 04/29/23 History tramadol 50 mg tablet 50 mg PO Q6H PRN Pain (Scale Score 03/10/23 04/29/23 History 7-10) telmisartan 80 mg tablet 80 mg PO DAILY #90 tabs 04/05/23 04/29/23 Rx amlodipine 2.5 mg tablet 2.5 mg PO DAILY 04/29/23 04/29/23 History Allergies Allergy/AdvReac Type Severity Reaction Status Date / Time povidone-iodine Allergy Unknown RED AND Verified 10/19/23 10:43 [POVIDONE-IODINE] ITCHY valacyclovir [VALACYCLOVIR] AdvReac Unknown EXTREME Verified 04/29/23 10:43 NAUSEA AND VOMITING Exam Const General: No acute distress Resp Effort & Inspection: normal respiratory effort Assessment & Plan Assessment and plan (1) Colon cancer screening: Status: Acute Plan We reviewed the risks and benefits of colonoscopy for colon cancer screening and she would like to proceed.
--- NOTE | 2023-04-29 12:38 | PM.OP.COLON ---
Operative Date/Time/Diagnoses Date of procedure: 04/29/23 Time of procedure: 12:38 Pre-op diagnosis: Colon cancer screening Post-op diagnosis: same Procedure & Clinicians Study performed: Colonoscopy Same procedure as scheduled: Yes Surgeon: Kevin Sebastian Procedure Notes Procedure in detail: Surgeon: Kevin Sebastian MD Anesthesia: Aiyana Marks CRNA Procedure: The patient was brought to the endoscopy suite, placed in left lateral decubitus position. The patient was connected to monitoring devices. A time-out was performed. Sedation was administered. Once the patient was adequately sedated, a digital rectal exam was performed and was normal. The scope was then inserted and advanced to the cecum where the appendiceal orifice was identified and photographed. The scope was then slowly withdrawn over greater than 6 minutes. The mucosa was thoroughly inspected. There was a 3 mm polyp in the cecum removed with a cold snare. No other abnormalities were found. The scope was retroflexed in the rectum. Internal hemorrhoids were noted. The scope was straightened and removed. The patient was awakened and brought to recovery. Scope withdrawal time: 9 minutes Sedation time: 18 minutes EBL: 2 mL Findings: Small polyp in the cecum Post-procedure Disposition: PACU
[2023-04-29 12:42] VITALS: BP 116/59; PULSE 63; RESP 20; TEMP 36.6; O2SAT 100
[2023-04-29 12:48] VITALS: BP 121/60; PULSE 57; RESP 10; O2SAT 97
[2023-04-29 12:54] VITALS: BP 125/55; PULSE 60; RESP 15; TEMP 36.6; O2SAT 98
[2023-04-29 13:04] VITALS: BP 125/69; PULSE 61; RESP 18; O2SAT 98
== END 2023-04-29 13:15 | disposition home or self-care (01) ==
PROVIDERS: PCP Internal Medicine; Referring Provider Surgery; Visit Provider Surgery
PROC: 0DJD8ZZ Inspection of Lower Intestinal Tract, Via Natural or Artificial Opening Endoscopic (ICD-10-PCS; CPT 45378; principal; 2023-04-29 10:45)
DX: Z12.11 Encounter for screening for malignant neoplasm of colon (principal); D12.0 Benign neoplasm of cecum
CPT/HCPCS: 45385; J2704

== ENCOUNTER → 2023-09-07 11:09 | Outpatient (CLI) | payer MEDICARE, SELFPAY ==
[2023-09-07 12:35] LABS: Add Manual Diff / Slide Review NO; Basophils Absolute Auto 100 /uL (0-100); Basophils Percent Auto 1.3 % (0-2); Eosinophils Absolute Auto 700 /uL (0-450); Eosinophils Percent Auto 11.8 % (2-4); Hemoglobin 12.6 g/dL (12.0-16.0); Lymphocytes Absolute Auto 2000 /uL (1100-4500); Lymphocytes Percent Auto 33.2 % (25-40); Mean Corpuscular HGB Conc 33.2 % (30-36); Mean Corpuscular Hemoglobin 29.3 PG (26-34); Mean Corpuscular Volume 88.5 fL (80-100); Monocytes Absolute Auto 700 /uL (0-900); Monocytes Percent Auto 10.9 % (3-14); Neutrophils Absolute Auto 2600 /uL (1500-7000); Neutrophils Percent Auto 42.8 % (50-75); Platelet Count 200 X10^3/uL (150-400); Red Blood Cell Count 4.29 X10^6/uL (4.0-5.2); Red Cell Distribution Width 14.4 % (11.6-14.8)
[2023-09-07 13:08] LABS: Appearance Urine UA CLEAR; Bilirubin Urine UA NEGATIVE (NEGATIVE); Color Urine UA YELLOW; Glucose Urine UA 1+ g/dL (Negative); Ketones Urine UA NEGATIVE (NEGATIVE); Leukocyte Esterase Urine UA NEGATIVE (NEGATIVE); Nitrite Urine UA NEGATIVE (Negative); Occult Blood Urine UA NEGATIVE (Negative); Protein Urine UA TRACE (Negative); Specific Gravity Urine UA <=1.005 (1.000-1.035); Urobilinogen Urine UA 0.2 E.U./dL (0.2)
[2023-09-07 13:09] LABS: Blood Urea Nitrogen 32 mg/dL (7-17); Calcium 9.4 mg/dL (8.4-10.2); Carbon Dioxide 26 mmol/L (22-32); Chloride 105 mmol/L (98-107); Estimated Glomerular Filt Rate 26 mL/min (>60); Glucose 83 mg/dL (80-110); HEMOLYSIS < 15 (0-50); Potassium 4.5 mmol/L (3.4-5.1); Sodium 137 mmol/L (137-145)
[2023-09-07 13:18] LABS: Bacteria Urine None Seen; Culture Indicated Urine Cult Not Indicated; RBC Urine None Seen (0-5/HPF); Squamous Epithelial Cell Urine None Seen (0-5/HPF); Urine Volume 10mL (spun); WBC Urine None Seen (0-5/HPF)
[2023-09-07 13:36] LABS: Creatinine Urine Random 42.1 mg/dL
[2023-09-07 14:05] LABS: Microalbumi Creatinin Ratio Ur 489.3 ug/mg CR (<30); Microalbumin Urine Random 20.6 mg/dL (0-1.6)
[2023-09-09 13:36] LABS: Calcium 9.4 mg/dL (8.7-10.3); Parathyroid Hormone, Intact 33 pg/mL (15-65)
== END ==
PROVIDERS: PCP Internal Medicine; Referring Provider Internal Medicine Nephrology; Visit Provider Internal Medicine Nephrology
DX: N18.4 Chronic kidney disease, stage 4 (severe) (principal); N25.81 Secondary hyperparathyroidism of renal origin
CPT/HCPCS: 36415; 80048; 81001; 82043; 82310; 82570; 83970; 85025

== ENCOUNTER → 2023-10-13 11:11 | Outpatient (CLI) | payer MEDICARE, SELFPAY ==
[2023-10-13 12:48] LABS: Add Manual Diff / Slide Review NO; Basophils Absolute Auto 100 /uL (0-100); Basophils Percent Auto 0.9 % (0-2); Eosinophils Absolute Auto 700 /uL (0-450); Eosinophils Percent Auto 10.8 % (2-4); Hematocrit 37.4 % (36-46); Hemoglobin 12.6 g/dL (12.0-16.0); Lymphocytes Absolute Auto 2500 /uL (1100-4500); Mean Corpuscular HGB Conc 33.5 % (30-36); Mean Corpuscular Hemoglobin 30.2 PG (26-34); Mean Corpuscular Volume 90.1 fL (80-100); Monocytes Absolute Auto 700 /uL (0-900); Monocytes Percent Auto 10.5 % (3-14); Neutrophils Absolute Auto 2500 /uL (1500-7000); Neutrophils Percent Auto 38.8 % (50-75); Platelet Count 201 X10^3/uL (150-400); Red Blood Cell Count 4.15 X10^6/uL (4.0-5.2); Red Cell Distribution Width 14.2 % (11.6-14.8); White Blood Cell Count 6.4 X10^3/uL (4.5-11.0)
[2023-10-13 13:07] LABS: BUN Creatinine Ratio 14.2 (6-22); Blood Urea Nitrogen 30 mg/dL (7-17); Calcium 8.8 mg/dL (8.4-10.2); Carbon Dioxide 28 mmol/L (22-32); Chloride 106 mmol/L (98-107); Estimated Glomerular Filt Rate 24 mL/min (>60); Glucose 84 mg/dL (80-110); HEMOLYSIS < 15 (0-50); Potassium 4.1 mmol/L (3.4-5.1); Sodium 139 mmol/L (137-145)
[2023-10-13 16:43] LABS: Creatinine Urine Random 49.9 mg/dL
[2023-10-13 16:57] LABS: Microalbumi Creatinin Ratio Ur 434.8 ug/mg CR (<30); Microalbumin Urine Random 21.7 mg/dL (0-1.6)
== END ==
LOC: LAB 11:13
PROVIDERS: PCP Internal Medicine; Referring Provider Internal Medicine Nephrology; Visit Provider Internal Medicine Nephrology
DX: N18.30 Chronic kidney disease, stage 3 unspecified (principal)
CPT/HCPCS: 36415; 80048; 82043; 82570; 85025

== ENCOUNTER → 2023-11-03 16:14 | Outpatient (CLI) | payer MEDICARE, SELFPAY ==
--- NOTE | 2023-11-03 16:15 | DI.MG.S_ITS ---
BILATERAL DIGITAL SCREENING MAMMOGRAM 3D/2D WITH CAD: 11/03/2023 CLINICAL: Routine screening. Comparison is made to exams dated: 06/21/2019 mammogram, 05/30/2018 mammogram - [facility], and 08/31/2011 mammogram - [facility]. Both breasts are heterogeneously dense, which may obscure small masses (category c / 51-75% glandular tissue). Current study was also evaluated with a Computer Aided Detection (CAD) system. No significant masses, calcifications, or other findings are seen in either breast. There has been no significant interval change. IMPRESSION: NEGATIVE There is no mammographic evidence of malignancy. A 1 year screening mammogram is recommended. Based on the Tyrer Cuzick model (a risk assessment model) the patient's lifetime risk is 7.4% and her 10 year risk is 7.4%. According to the ACR, ACS, and NCCN guidelines, an annual breast MRI exam along with mammogram is recommended if the patient's lifetime risk is 20% or greater. This exam was interpreted at Station ID: [id number]. NOTE: For mammograms, a report in lay terms will be sent to the patient. Approximately 15% of breast malignancies will not be visualized mammographically. In the management of a palpable breast mass, a negative mammogram must not discourage biopsy of a clinically suspicious lesion. Electronically Signed By: Hector zelaya/katherin:11/04/2023 10:33:34 letter sent: Normal Exam ACR BI-RADS Category 1: Negative 3341F
== END ==
PROVIDERS: PCP Internal Medicine; Referring Provider Internal Medicine; Visit Provider Internal Medicine
DX: Z12.31 Encounter for screening mammogram for malignant neoplasm of breast (principal); R92.333 Mammographic heterogeneous density, bilateral breasts
CPT/HCPCS: 77063; 77067

== ENCOUNTER → 2023-12-03 11:40 | Outpatient (CLI) | payer MEDICARE, SELFPAY ==
[2023-12-03 13:22] LABS: Add Manual Diff / Slide Review NO; Basophils Absolute Auto 0 /uL (0-100); Basophils Percent Auto 0.7 % (0-2); Eosinophils Absolute Auto 600 /uL (0-450); Eosinophils Percent Auto 8.6 % (2-4); Hematocrit 38.3 % (36-46); Hemoglobin 12.8 g/dL (12.0-16.0); Lymphocytes Absolute Auto 2300 /uL (1100-4500); Lymphocytes Percent Auto 35.2 % (25-40); Mean Corpuscular HGB Conc 33.4 % (30-36); Mean Corpuscular Hemoglobin 30.4 PG (26-34); Mean Corpuscular Volume 90.9 fL (80-100); Monocytes Absolute Auto 500 /uL (0-900); Monocytes Percent Auto 8.2 % (3-14); Neutrophils Absolute Auto 3100 /uL (1500-7000); Neutrophils Percent Auto 47.3 % (50-75); Platelet Count 205 X10^3/uL (150-400); Red Blood Cell Count 4.21 X10^6/uL (4.0-5.2); Red Cell Distribution Width 14.2 % (11.6-14.8); White Blood Cell Count 6.5 X10^3/uL (4.5-11.0)
[2023-12-03 13:44] LABS: BUN Creatinine Ratio 16.2 (6-22); Blood Urea Nitrogen 32 mg/dL (7-17); Calcium 8.4 mg/dL (8.4-10.2); Carbon Dioxide 27 mmol/L (22-32); Chloride 107 mmol/L (98-107); Estimated Glomerular Filt Rate 26 mL/min (>60); Glucose 74 mg/dL (80-110); HEMOLYSIS < 15 (0-50); Potassium 4.3 mmol/L (3.4-5.1); Sodium 140 mmol/L (137-145)
[2023-12-03 15:29] LABS: Appearance Urine UA CLEAR; Bilirubin Urine UA NEGATIVE (NEGATIVE); Color Urine UA YELLOW; Glucose Urine UA 2+ g/dL (Negative); Ketones Urine UA NEGATIVE (NEGATIVE); Leukocyte Esterase Urine UA NEGATIVE (NEGATIVE); Nitrite Urine UA NEGATIVE (Negative); Occult Blood Urine UA NEGATIVE (Negative); Protein Urine UA TRACE (Negative); Specific Gravity Urine UA <=1.005 (1.000-1.035); Urobilinogen Urine UA 0.2 E.U./dL (0.2)
[2023-12-03 15:38] LABS: pH Urine UA 5.5 (4.5-8.0)
[2023-12-03 15:52] LABS: Bacteria Urine Occasional (0-1); RBC Urine None Seen (0-5/HPF); Squamous Epithelial Cell Urine 0-1 /HPF (0-5/HPF); Urine Volume 10mL (spun); WBC Urine None Seen (0-5/HPF)
[2023-12-03 15:53] LABS: Culture Indicated Urine Cult Not Indicated
[2023-12-03 16:05] LABS: Creatinine Urine Random 51.29 mg/dL
[2023-12-03 16:25] LABS: Microalbumin Urine Random 21.1 mg/dL (0-1.6)
== END ==
PROVIDERS: PCP Internal Medicine; Referring Provider Internal Medicine Nephrology; Visit Provider Internal Medicine Nephrology
DX: N18.30 Chronic kidney disease, stage 3 unspecified (principal)
CPT/HCPCS: 36415; 80048; 81001; 82043; 82570; 85025

== ENCOUNTER → 2024-02-28 10:53 | Outpatient (CLI) | payer MEDICARE, SELFPAY ==
[2024-02-28 11:52] LABS: Add Manual Diff / Slide Review NO; Basophils Absolute Auto 100 /uL (0-100); Basophils Percent Auto 0.9 % (0-2); Eosinophils Absolute Auto 400 /uL (0-450); Eosinophils Percent Auto 7.3 % (2-4); Hematocrit 39.1 % (36-46); Lymphocytes Absolute Auto 2100 /uL (1100-4500); Lymphocytes Percent Auto 33.4 % (25-40); Mean Corpuscular HGB Conc 33.2 % (30-36); Mean Corpuscular Hemoglobin 30.6 PG (26-34); Mean Corpuscular Volume 92.1 fL (80-100); Monocytes Absolute Auto 600 /uL (0-900); Monocytes Percent Auto 9.8 % (3-14); Neutrophils Absolute Auto 3000 /uL (1500-7000); Neutrophils Percent Auto 48.6 % (50-75); Platelet Count 192 X10^3/uL (150-400); Red Blood Cell Count 4.25 X10^6/uL (4.0-5.2); Red Cell Distribution Width 14.1 % (11.6-14.8); White Blood Cell Count 6.2 X10^3/uL (4.5-11.0)
[2024-02-28 12:22] LABS: Alanine Aminotransferase 52 IU/L (<35); Albumin 4.1 g/dL (3.5-5.0); Albumin Globulin Ratio 1.5 (1.0-2.8); Alkaline Phosphatase 75 U/L (38-126); Aspartate Aminotransferase 49 IU/L (14-36); BUN Creatinine Ratio 13.1 (6-22); Bilirubin Total 0.5 mg/dL (0.2-1.3); Blood Urea Nitrogen 28 mg/dL (7-17); C-Reactive Protein Quant < 0.5 mg/dL (<1.0); Calcium 8.7 mg/dL (8.4-10.2); Carbon Dioxide 22 mmol/L (22-32); Chloride 106 mmol/L (98-107); Erythrocyte Sedimentation Rate 24 MM/HR (0-20); Estimated Glomerular Filt Rate 24 mL/min (>60); Globulin 2.8 g/dL (1.7-4.1); Glucose 104 mg/dL (80-110); HEMOLYSIS < 15 (0-50); Potassium 4.6 mmol/L (3.4-5.1); Sodium 136 mmol/L (137-145); Total Protein 6.9 g/dL (6.3-8.2)
== END ==
LOC: LAB 10:55
PROVIDERS: PCP Internal Medicine; Referring Provider Internal Medicine Rheumatology; Visit Provider Internal Medicine Rheumatology
DX: M35.00 Sjogren syndrome, unspecified (principal)
CPT/HCPCS: 36415; 80053; 84155; 84165; 85025; 85651; 86140

== ENCOUNTER → 2024-04-12 12:18 | Outpatient (CLI) | payer MEDICARE, SELFPAY ==
--- NOTE | 2024-04-12 12:19 | DI.RAD.S_ITS ---
PROCEDURE: XR CHEST 2V INDICATIONS: cough and chest congestion TECHNIQUE: 2 views of the chest were acquired. COMPARISON: None. FINDINGS: Surgical changes and devices: None. Lungs and pleura: Minimal appearance of increased interstitial prominence within the bases. Mediastinum: Mediastinal contours are normal. Heart size is normal. Bones and chest wall: No suspicious bony abnormalities. Soft tissues appear unremarkable. IMPRESSION: Minimal increased interstitial prominence within bases, left greater than right. Developing pneumonia cannot be excluded. Dictated by: Jackelin House M.D. on 04/12/2024 at 16:40 Approved by: Jackelin House M.D. on 04/12/2024 at 16:41
[2024-04-12 13:48] LABS: Add Manual Diff / Slide Review NO; Basophils Absolute Auto 100 /uL (0-100); Basophils Percent Auto 0.8 % (0-2); Eosinophils Absolute Auto 600 /uL (0-450); Eosinophils Percent Auto 7.7 % (2-4); Hematocrit 37.3 % (36-46); Hemoglobin 12.6 g/dL (12.0-16.0); Lymphocytes Absolute Auto 2200 /uL (1100-4500); Lymphocytes Percent Auto 27.5 % (25-40); Mean Corpuscular HGB Conc 33.7 % (30-36); Mean Corpuscular Hemoglobin 30.6 PG (26-34); Mean Corpuscular Volume 90.8 fL (80-100); Monocytes Absolute Auto 800 /uL (0-900); Monocytes Percent Auto 9.9 % (3-14); Neutrophils Absolute Auto 4200 /uL (1500-7000); Neutrophils Percent Auto 54.1 % (50-75); Platelet Count 257 X10^3/uL (150-400); Red Blood Cell Count 4.11 X10^6/uL (4.0-5.2); Red Cell Distribution Width 13.5 % (11.6-14.8); White Blood Cell Count 7.9 X10^3/uL (4.5-11.0)
[2024-04-12 14:19] LABS: BUN Creatinine Ratio 15.3 (6-22); Blood Urea Nitrogen 29 mg/dL (7-17); Calcium 9.5 mg/dL (8.4-10.2); Carbon Dioxide 27 mmol/L (22-32); Chloride 103 mmol/L (98-107); Estimated Glomerular Filt Rate 27 mL/min (>60); Glucose 86 mg/dL (80-110); HEMOLYSIS < 15 (0-50); Potassium 4.5 mmol/L (3.4-5.1); Sodium 135 mmol/L (137-145)
[2024-04-12 14:25] LABS: NT-proBNP (BNP-Adult 18+) 304 pg/mL (<450)
== END ==
PROVIDERS: PCP Internal Medicine; Referring Provider Physician Assistant; Visit Provider Physician Assistant
DX: R05.9 Cough, unspecified (principal); I12.9 Hypertensive chronic kidney disease with stage 1 through stage 4 chronic kidney disease, or unspecified chronic kidney disease; N18.4 Chronic kidney disease, stage 4 (severe); J20.9 Acute bronchitis, unspecified; R09.89 Other specified symptoms and signs involving the circulatory and respiratory systems
CPT/HCPCS: 36415; 71046; 80048; 83880; 85025

== ENCOUNTER → 2024-05-23 13:30 | Outpatient (CLI) | payer MEDICARE, SELFPAY ==
[2024-05-23 14:08] LABS: Appearance Urine UA CLEAR; Bilirubin Urine UA NEGATIVE (NEGATIVE); Color Urine UA YELLOW; Glucose Urine UA 2+ g/dL (Negative); Ketones Urine UA NEGATIVE (NEGATIVE); Leukocyte Esterase Urine UA NEGATIVE (NEGATIVE); Nitrite Urine UA NEGATIVE (Negative); Occult Blood Urine UA NEGATIVE (Negative); Protein Urine UA 1+ (Negative); Urobilinogen Urine UA 0.2 E.U./dL (0.2)
[2024-05-23 14:23] LABS: Bacteria Urine Occasional (0-1); Culture Indicated Urine Cult Not Indicated; RBC Urine None Seen (0-5/HPF); Squamous Epithelial Cell Urine 0-1 /HPF (0-5/HPF); Urine Volume 10mL (spun); WBC Urine 0-1/HPF (0-5/HPF)
[2024-05-23 15:42] LABS: Creatinine Urine Random 37.61 mg/dL
[2024-05-23 16:03] LABS: Microalbumin Urine Random 33.5 mg/dL (0-1.6)
== END ==
PROVIDERS: PCP Internal Medicine; Referring Provider Internal Medicine Nephrology; Visit Provider Internal Medicine Nephrology
DX: N05.9 Unspecified nephritic syndrome with unspecified morphologic changes (principal)
CPT/HCPCS: 36415; 81001; 82043; 82570

== ENCOUNTER 2024-06-15 09:55 | Emergency (ER) | payer MEDICARE, SELFPAY ==
[2024-06-15] VITALS (18 sets, daily range): BP systolic 198–228; BP diastolic 79–116; PULSE 70–98; RESP 13–20; TEMP 36.7; O2SAT 91–96; BMI 27.1
--- NOTE | 2024-06-15 10:10 | DI.RAD.S_ITS ---
PROCEDURE: XR CHEST 1V INDICATIONS: chest pain TECHNIQUE: One view of the chest was acquired. COMPARISON: [facility], CR, XR CHEST 2V, 04/12/2024, 12:17. FINDINGS: Surgical changes and devices: None. Lungs and pleura: Lungs are clear. No pleural effusions or pneumothorax. Mediastinum: Mediastinal contours appear normal. Heart size is enlarged. Bones and chest wall: No suspicious bony lesions. Overlying soft tissues appear unremarkable. IMPRESSION: No acute cardiopulmonary abnormality. Dictated by: Jackelin House M.D. on 06/15/2024 at 11:10 Approved by: Jackelin House M.D. on 06/15/2024 at 11:11
--- NOTE | 2024-06-15 10:14 | EKG_ITS ---
[address] [address] [address] [address] Test Date: 2024-06-15 Pat Name: Arin Joseph Department: Room: Gender: Female Campus Manager: TASHIA : 1945 Requested By: Order Number: [id number] Reading MD: Marcos Quiroz MD Measurements Intervals Danube Rate: 78 P: 61 AR: 156 QRS: 24 QRSD: 72 T: 41 QT: 404 QTc: 460 Interpretive Statements Normal sinus rhythm Septal infarct , age undetermined Electronically Signed On 06-16-2024 6:41:22 PST by Marcos Quiroz MD
[2024-06-15 10:22] LABS: Add Manual Diff / Slide Review NO; Basophils Absolute Auto 100 /uL (0-100); Eosinophils Absolute Auto 600 /uL (0-450); Eosinophils Percent Auto 7.3 % (2-4); Hematocrit 40.7 % (36-46); Hemoglobin 13.3 g/dL (12.0-16.0); Lymphocytes Absolute Auto 2200 /uL (1100-4500); Lymphocytes Percent Auto 27.4 % (25-40); Mean Corpuscular HGB Conc 32.6 % (30-36); Mean Corpuscular Hemoglobin 29.1 PG (26-34); Mean Corpuscular Volume 89.3 fL (80-100); Monocytes Absolute Auto 700 /uL (0-900); Monocytes Percent Auto 9.3 % (3-14); Neutrophils Absolute Auto 4400 /uL (1500-7000); Platelet Count 263 X10^3/uL (150-400); Red Blood Cell Count 4.56 X10^6/uL (4.0-5.2); Red Cell Distribution Width 13.9 % (11.6-14.8); White Blood Cell Count 7.9 X10^3/uL (4.5-11.0)
[2024-06-15 10:30] LABS: INR 1.1 (0.9-1.3); Prothrombin Time 12.8 SECONDS (9.4-12.5)
[2024-06-15 10:33] LABS: PTT Partial Thromboplastin Tim 52 SECONDS (25.1-36.5)
[2024-06-15 10:45] LABS: Lactate (Lactic Acid) 1.4 mmol/L (0.7-2.1)
[2024-06-15 10:46] LABS: Alanine Aminotransferase 41 IU/L (<35); Albumin 4.1 g/dL (3.5-5.0); Albumin Globulin Ratio 1.3 (1.0-2.8); Alkaline Phosphatase 97 U/L (38-126); Aspartate Aminotransferase 46 IU/L (14-36); BUN Creatinine Ratio 12.1 (6-22); Bilirubin Total 0.5 mg/dL (0.2-1.3); Blood Urea Nitrogen 28 mg/dL (7-17); Calcium 8.9 mg/dL (8.4-10.2); Carbon Dioxide 24 mmol/L (22-32); Chloride 105 mmol/L (98-107); Creatine Kinase 256 U/L (30-135); Estimated Glomerular Filt Rate 21 mL/min (>60); Globulin 3.1 g/dL (1.7-4.1); Glucose 127 mg/dL (80-110); HEMOLYSIS < 15 (0-50); Lipase 187 U/L (23-300); Magnesium 2.1 mg/dL (1.6-2.3); Potassium 4.1 mmol/L (3.4-5.1); Sodium 136 mmol/L (137-145); Total Protein 7.2 g/dL (6.3-8.2)
[2024-06-15 10:57] LABS: NT-proBNP (BNP-Adult 18+) 1020 pg/mL (<450); Troponin I 0.018 ng/mL (0.01-0.034)
--- NOTE | 2024-06-15 11:13 | ED_ITS ---
HPI - General Adult General Chief complaint: Shortness of Breath/Dyspnea Stated complaint: Sent from PCP for a chest CT Time Seen by Provider: 06/15/24 10:19 Source: patient and family Mode of arrival: Family Vehicle History of Present Illness HPI narrative: 78-year-old woman with a history challenging to control hypertension, venous insufficiency, hyperlipidemia, atrial fibrillation for which she is anticoagulated on Eliquis, history of ROBINS, Sjogren's syndrome, chronic kidney disease presents with 3 months of cough. Started in mid March, she was seen by her primary care physician in April. She was reassured that this was viral. She is concerned that the cough is continuing and causing so many symptoms. She has not describing fevers, occasionally will have some sputum production but it is not consistent. She does not have a history tobacco use, asthma or emphysema has not previously every needed inhalers. No previous diagnosis of congestive heart failure. She did have mild reflux is now sleeping on a wedge pillow and feels that the reflux is better with no change to cough. She also notes moderate chronic postnasal drip. Related Data Home Medications Medication Instructions Recorded Confirmed apixaban 5 mg tablet (Eliquis) 5 mg PO BID 03/10/23 06/14/24 calcitriol 1 mcg/mL oral solution 1 mcg PO DAILY 03/10/23 06/14/24 metoprolol succinate 25 mg 25 mg PO DAILY 03/10/23 06/14/24 tablet,extended release 24 hr potassium citrate 15 mEq (1,620 15 meq PO BID 03/10/23 06/14/24 mg) tablet,extended release pregabalin 25 mg capsule 25 mg PO BEDTIME 03/10/23 06/14/24 tramadol 50 mg tablet 50 mg PO Q6H PRN Pain (Scale Score 03/10/23 06/14/24 7-10) empagliflozin 10 mg tablet 10 mg PO DAILY 08/23/23 06/14/24 (Jardiance) cholecalciferol (vitamin D3) 25 25 mcg PO DAILY 04/12/24 06/14/24 mcg (1,000 unit) capsule methylcellulose (laxative) 500 mg 1,000 mg PO DAILY 04/12/24 06/14/24 tablet (Citrucel) milk thistle 150 mg capsule 150 mg PO DAILY 04/12/24 06/14/24 svofmvtz-hzcrbta-dfya-lutein tablet tab PO DAILY 04/12/24 06/14/24 omega 5-qim-mao-fish oil 1,000 mg 1 cap PO DAILY 04/12/24 06/14/24 (120 mg-180 mg) capsule (Fish Oil) vitamin K2 100 mcg capsule 100 mcg PO DAILY 04/12/24 06/14/24 latanoprost 0.005 % eye drops drp EYE-BOTH 05/11/24 06/14/24 Previous Rx's Medication Instructions Recorded ezetimibe 10 mg tablet 10 mg PO DAILY #90 tabs 03/06/24 atorvastatin 10 mg tablet 10 mg PO DAILY #90 tabs 03/20/24 telmisartan 80 mg tablet 80 mg PO DAILY #90 tabs 04/10/24 inhalational spacing device #1 ea 04/12/24 (BreatheRite MDI Spacer) levalbuterol tartrate 45 2 inh inhalation Q8H #15 grams 04/12/24 mcg/actuation aerosol inhaler minoxidil 2.5 mg tablet 2.5 mg PO DAILY #90 tabs 06/05/24 Allergies Allergy/AdvReac Type Severity Reaction Status Date / Time povidone-iodine Allergy Unknown RED AND Verified 06/14/24 16:31 [POVIDONE-IODINE] ITCHY amlodipine AdvReac Intermediate Verified 06/14/24 16:31 levalbuterol AdvReac Intermediate Tachycardia Verified 06/14/24 16:45 and headache valacyclovir [VALACYCLOVIR] AdvReac Unknown EXTREME Verified 06/14/24 16:31 NAUSEA AND VOMITING Review of Systems Review of Systems Narrative: Pertinent positive and negative findings as per HPI Patient History Medical History (Updated 06/15/24 @ 14:12 by Sammie Mckinnon MD) Glaucoma, bilateral Venous (peripheral) insufficiency IgA nephropathy Hyperparathyroidism, secondary renal CKD (chronic kidney disease) stage 4, GFR 15-29 ml/min Rosacea Sjogren's syndrome RLS (restless legs syndrome) Mixed hyperlipidemia Essential hypertension Chronic anticoagulation Paroxysmal atrial fibrillation Osteopenia Social History details: (Willy), 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 Able to give a complete and coherent history. Well-nourished well-developed HEENT: Moist mucous membranes, normal sclera with reactive pupils, voice is slightly hoarse Neck: No JVD, supple Respiratory: Lungs, scattered wheeze, basilar rales, no rhonchi. No retractions no respiratory distress Cardiac: Regular rate and rhythm no murmurs no bruits Abdomen: Soft, nontender, good bowel tones, no flank pain Skin: Warm and dry, no rashes Neurologic: Grossly neurologically intact with no obvious asymmetries or abnormalities Extremities: No trauma, well perfused, no significant lower extremity edema Psych: Cooperative, appropriate insight and affect Course Orders Ordered: ED Orders 06/15/24 10:10 XR chest 1V Stat EKG-12 Lead Stat 06/15/24 10:14 Complete Blood Count AUTO DIFF Stat Comprehensive Metabolic Panel Stat Lactate (Lactic Acid) Stat Lipase Stat Magnesium Stat NT-proBNP (BNP-Adult 18+) Stat PTT Partial Thromboplastin Dimitri Stat Prothrombin Time INR Stat Troponin & CK Cardiac Panel Stat 06/15/24 10:23 EKG-12 Lead Stat Measure peak expiratory flow ONCE RT Consult Eval and Treat NOW 06/15/24 10:40 Urine Microscopic Stat 06/15/24 11:33 CT chest wo con Stat Discontinued Medications Albuterol/Ipratropium (Albuterol/Ipratropium 3 Ml Ampul) 3 ml INH NOW ONE Stop: 06/15/24 11:34 Last Admin: 06/15/24 11:55 Dose: 3 ml Documented By: ROYA Aspirin (Aspirin 81 Mg Chew Tab) 324 mg PO NOW ONE Stop: 06/15/24 10:11 Last Admin: 06/15/24 10:28 Dose: Not Given Documented By: AMARILIS Furosemide (Furosemide 40 Mg/4 Ml Vial) 40 mg IV NOW ONE Stop: 06/15/24 11:36 Last Admin: 06/15/24 11:41 Dose: 40 mg Documented By: AMARILIS Methylprednisolone (Methylprednisolone 125 Mg/2 Ml Vial) 125 mg IV NOW ONE Stop: 06/15/24 11:34 Last Admin: 06/15/24 11:42 Dose: 125 mg Documented By: AMARILIS Vital Signs Vital signs: Vital Signs - 8 hr 06/15/24 10:02 06/15/24 10:05 06/15/24 10:05 Temperature 98.1 F Pulse Rate 93 H 98 H Respiratory Rate 18 Blood Pressure 228/91 H 228/91 H Pulse Oximetry 96 Oxygen Delivery Method Room Air 06/15/24 10:05 06/15/24 10:30 06/15/24 10:31 Temperature Pulse Rate 87 74 76 Respiratory Rate 20 15 18 Blood Pressure Pulse Oximetry 95 96 Oxygen Delivery Method Room Air 06/15/24 10:31 06/15/24 10:41 06/15/24 10:41 Temperature Pulse Rate 87 Respiratory Rate 20 Blood Pressure 198/83 H 206/86 H Pulse Oximetry Oxygen Delivery Method 06/15/24 11:00 06/15/24 11:00 06/15/24 11:36 Temperature Pulse Rate 73 86 Respiratory Rate 13 Blood Pressure 204/84 H Pulse Oximetry 94 Oxygen Delivery Method Room Air 06/15/24 11:55 Temperature Pulse Rate 76 Respiratory Rate 16 Blood Pressure Pulse Oximetry 94 Oxygen Delivery Method Room Air Medical Decision Making Lab Data 06/15/24 10:14 06/15/24 10:14 Labs: Lab Results 06/15/24 06/15/24 Range/Units 10:14 10:40 WBC 7.9 (4.5-11.0) X10^3/uL RBC 4.56 (4.0-5.2) X10^6/uL Hgb 13.3 (12.0-16.0) g/dL Hct 40.7 (36-46) % MCV 89.3 (80-100) fL MCH 29.1 (26-34) PG MCHC 32.6 (30-36) % RDW 13.9 (11.6-14.8) % Plt Count 263 (150-400) X10^3/uL Neut % (Auto) 55.0 (50-75) % Lymph % (Auto) 27.4 (25-40) % [place] % (Auto) 9.3 (3-14) % Eos % (Auto) 7.3 H (2-4) % Baso % (Auto) 1.0 (0-2) % Neut # (Auto) 4400 (1437-1445) /uL Lymph # (Auto) 2200 (5018-8716) /uL [place] # (Auto) 700 (0-900) /uL Eos # (Auto) 600 H (0-450) /uL Baso # (Auto) 100 (0-100) /uL PT 12.8 H (9.4-12.5) SECONDS INR 1.1 (0.9-1.3) APTT 52 H (25.1-36.5) SECONDS Sodium 136 L (137-145) mmol/L Potassium 4.1 (3.4-5.1) mmol/L Chloride 105 (98-107) mmol/L Carbon Dioxide 24 (22-32) mmol/L BUN 28 H (7-17) mg/dL Creatinine 2.31 H (0.52-1.04) mg/dL Estimated GFR 21 L (>60) mL/min BUN/Creatinine Ratio 12.1 (6-22) Glucose 127 H (80-110) mg/dL Lactate 1.4 (0.7-2.1) mmol/L Calcium 8.9 (8.4-10.2) mg/dL Magnesium 2.1 (1.6-2.3) mg/dL Total Bilirubin 0.5 (0.2-1.3) mg/dL AST 46 H (14-36) IU/L ALT 41 H (<35) IU/L Alkaline Phosphatase 97 (38-126) U/L Total Creatine Kinase 256 H (30-135) U/L Troponin I 0.018 (0.01-0.034) ng/mL NT-Pro-B Natriuret Pep 1020 H (<450) pg/mL Total Protein 7.2 (6.3-8.2) g/dL Albumin 4.1 (3.5-5.0) g/dL Globulin 3.1 (1.7-4.1) g/dL Albumin/Globulin Ratio 1.3 (1.0-2.8) Lipase 187 (23-300) U/L Urine RBC 0-1/hpf (0-5/HPF) Urine WBC 0-1/hpf (0-5/HPF) Ur Squamous Epith Cells None seen (0-5/HPF) Urine Bacteria None seen (None) Ur Culture Indicated? Cult not indicated Vol Urine Centrifuged 10ml (spun) Urine Dip Bedside Urine Glucose 100 mg/dl Bedside Urine Bilirubin - Negative Bedside Urine Ketone - Negative Urine Specific [place] 1.005 Bedside Urine Occult Blood - Negative Bedside Urine pH 6.0 Bedside Urine Protein ++ 100 Bedside Urine Urobilinogen - Negative Bedside Urine Nitrite - Negative Bedside Urine Leukocytes - Negative Esterase Point of care testing: Urine Dip Bedside Urine Glucose 100 mg/dl Bedside Urine Bilirubin - Negative Bedside Urine Ketone - Negative Urine Specific [place] 1.005 Bedside Urine Occult Blood - Negative Bedside Urine pH 6.0 Bedside Urine Protein ++ 100 Bedside Urine Urobilinogen - Negative Bedside Urine Nitrite - Negative Bedside Urine Leukocytes - Negative Esterase Imaging Data CT scan - chest: Radiologist's Impression: PROCEDURE: CT CHEST WO CON INDICATIONS: persistent cough >3 months TECHNIQUE: Noncontrast 5 mm thick sections acquired from the pulmonary apices to the posterior costophrenic angles. 1 mm lung window, 5 mm thick coronal and sagittal and 7 mm axial MIP reformats were then acquired. For radiation dose reduction, the following was used: automated exposure control, adjustment of mA and/or kV according to patient size. COMPARISON: None. FINDINGS: Image quality: Diagnostic. Lower Neck: No enlarged lymph nodes. Thyroid: No thyroid nodules which require sonographic follow up, per consensus guidelines. Axillae: No enlarged lymph nodes. Chest Wall: Unremarkable. Bones: Unremarkable. Lungs and Pleura: No pneumothorax or pleural effusions. Diffuse mosaic attenuation. Scattered solid pulmonary micro nodules, index nodule measuring 3 millimeters in the right middle lobe (series 3, image 134). Heart: Heart size is enlarged, with 2 vessel coronary artery calcifications. No pericardial effusion. Thoracic Vessels: The aorta and pulmonary arteries demonstrate normal size. Mediastinum and Yolanda: No enlarged lymph nodes. Esophagus: No wall thickening. No hiatal hernia. Upper Abdomen: Visualized upper abdomen solid organs and bowel loops appear normal. IMPRESSION: Mosaic attenuation of the lungs, suggestive of air trapping in the setting of small airways disease. Atypical infection is less likely. Pulmonary micronodules. Consider 12 month follow-up if at high risk for developing lung cancer, per Fleischner Society guidelines. Dictated by: aMrcelino Live M.D. on 06/15/2024 at 12:08 MDM Narrative Medical decision making narrative: CC: Cough persisting for 3 months Complicating co-morbidities: Kidney disease secondary to IgA nephropathy, atrial fibrillation on apixaban, hyperlipidemia, Data collected from: patient, Medical records reviewed: Notes from August 15 and April 17 May 11 all related to her cough and primary care physician's office reviewed Differential considered: Residual cough secondary to viral etiology such as pertussis or RSV, neoplastic process, reactive airway disease, congestive heart failure Exam documented above, pertinent findings include: Patient is able to speak in full sentences, there was no respiratory distress she is somewhat hoarse she does cough during the interview. She has scattered wheezes in all lung swan and crackles in the bases. Lab Test results independently reviewed as above. Pertinent findings: CBC is unremarkable Chemistries show creatinine at 2.3 which is within her baseline range, electrolytes are appropriate, mildly elevated AST ALT similar to prior Troponin Is undetected proBNP is slightly elevated at just over a 1000 Independently reviewed EKG: Sinus rhythm at a rate of 78. No acute ischemia Imaging studies independently reviewed: Chest x-ray is unremarkable CT scan of the chest done without contrast due to her chronic kidney disease has minimal findings, mosaic attenuation of the lung suggestive of air trapping in the setting of small airway disease atypical infection is less likely. Pulmonary micro nodules with suggestion of 12 month follow up if it high-risk for developing lung cancer Treatments: Solu-Medrol 125, DuoNeb, 40 mg of Lasix Re-evaluations: With interventions above patient states that she does not feel better however she not coughing as much as I am reviewing all of the information and details Discussion: 78-year-old woman with 3 months cough expecting a definitive answer and frustrated when I explained to her I am able to rule out life-threatening etiologies but sometimes takes time and outpatient consultation to get to definitive diagnosis. More than 20 minutes spent in discharge explaining findings and answering questions. Her BNP was slightly elevated however she did not have significant interstitial findings on her CT scan, given her elevated creatinine and lack of definitive diagnosis for congestive heart failure I do not believe continued Lasix as an outpatient is going to be appropriate. Outpatient echo maybe helpful. I suspect that she actually is having a extended post viral cough and may in fact have had RSV your pertussis earlier in the fall. The CT scan does suggest small airway disease, her provider seen yesterday has already ordered pulmonary function testing. We will have her complete 5 additional days of steroid. She is found that albuterol causes tachycardia and makes her feel overall unwell she does have this at home and I will not recommend that she continue. On there was no evidence of infection and no indication for antibiotics. Patient has an appointment scheduled with her primary care physician to follow up on this chronic cough next Wednesday she is safe for discharge. She is given printed copies of lab work and imaging study results today Discharge Plan Departure Patient Disposition: Home Clinical Impression: Cough Qualifiers: Cough type: subacute Qualified Code(s): R05.2 - Subacute cough Instructions: DI for Cough -- Adult Activity Restrictions/Additional Instructions: I am sorry that I am not able to Wednesday definitive reason for the cough that you have now had for the last 3 months. I am unable to tell you it does not look like it is cancer. You do not have bacterial pneumonia and it is less likely that you still have any viral etiology left is cough I suspect that back in March you contracted 1 of the viruses that causes prolonged coughing such as RSV your pertussis. I am going to give you 5 additional days of steroid to see if this helps with the inflammatory part of the cough and gives you some additional relief You do need to follow up with Dr. Sheriff, pulmonary function tests have been appropriately ordered. Dr. Sheriff may recommend additional cardiology follow up or pulmonary follow up If you are developing fevers, new findings, coughing up blood it would be very appropriate to return to the emergency department Prescriptions: No Action Jardiance 10 mg tablet 10 mg PO DAILY ezetimibe 10 mg tablet 10 mg PO DAILY Qty: 90 3RF atorvastatin 10 mg tablet 10 mg PO DAILY Qty: 90 3RF telmisartan 80 mg tablet 80 mg PO DAILY Qty: 90 3RF minoxidil 2.5 mg tablet 2.5 mg PO DAILY Qty: 90 0RF latanoprost 0.005 % drops EYE-BOTH metoprolol succinate 25 mg tablet extended release 24 hr 25 mg PO DAILY tramadol 50 mg tablet 50 mg PO Q6H PRN (Reason: Pain (Scale Score 7-10)) Eliquis 5 mg tablet 5 mg PO BID calcitriol 1 mcg/mL solution 1 mcg PO DAILY potassium citrate 15 mEq tablet extended release 15 meq PO BID pregabalin 25 mg capsule 25 mg PO BEDTIME cholecalciferol (vitamin D3) 25 mcg (1,000 unit) capsule 25 mcg PO DAILY vitamin K2 100 mcg capsule 100 mcg PO DAILY milk thistle 150 mg capsule 150 mg PO DAILY Rx Instructions: give with meal/snack omega 4-iuh-awp-fish oil [Fish Oil] 1,000 mg (120 mg-180 mg) capsule 1 cap PO DAILY iayqfdok-szskwbe-tmvi-lutein Tablet PO DAILY Citrucel 500 mg tablet 1,000 mg PO DAILY levalbuterol tartrate 45 mcg/actuation HFA aerosol inhaler 2 inh inhalation Q8H Qty: 15 1RF Rx Instructions: Inhale 2 puffs every 8 hours as needed for cough/wheezing - use with spacer (DME) BreatheRite MDI Spacer Spacer See Rx Instructions .Route Qty: 1 0RF Rx Instructions: As directed Referrals: Calin Sheriff MD [Primary Care Provider] - Stand Alone Forms: Patient Portal/API/Survey
--- NOTE | 2024-06-15 11:33 | DI.CT.S_ITS ---
PROCEDURE: CT CHEST WO CON INDICATIONS: persistent cough >3 months TECHNIQUE: Noncontrast 5 mm thick sections acquired from the pulmonary apices to the posterior costophrenic angles. 1 mm lung window, 5 mm thick coronal and sagittal and 7 mm axial MIP reformats were then acquired. For radiation dose reduction, the following was used: automated exposure control, adjustment of mA and/or kV according to patient size. COMPARISON: None. FINDINGS: Image quality: Diagnostic. Lower Neck: No enlarged lymph nodes. Thyroid: No thyroid nodules which require sonographic follow up, per consensus guidelines. Axillae: No enlarged lymph nodes. Chest Wall: Unremarkable. Bones: Unremarkable. Lungs and Pleura: No pneumothorax or pleural effusions. Diffuse mosaic attenuation. Scattered solid pulmonary micro nodules, index nodule measuring 3 millimeters in the right middle lobe (series 3, image 134). Heart: Heart size is enlarged, with 2 vessel coronary artery calcifications. No pericardial effusion. Thoracic Vessels: The aorta and pulmonary arteries demonstrate normal size. Mediastinum and Yolanda: No enlarged lymph nodes. Esophagus: No wall thickening. No hiatal hernia. Upper Abdomen: Visualized upper abdomen solid organs and bowel loops appear normal. IMPRESSION: Mosaic attenuation of the lungs, suggestive of air trapping in the setting of small airways disease. Atypical infection is less likely. Pulmonary micronodules. Consider 12 month follow-up if at high risk for developing lung cancer, per Fleischner Society guidelines. Dictated by: Marcelino Live M.D. on 06/15/2024 at 12:08 Approved by: Marcelino Live M.D. on 06/15/2024 at 12:10
[2024-06-15 11:37] LABS: Bacteria Urine None Seen; Culture Indicated Urine Cult Not Indicated; RBC Urine 0-1/HPF (0-5/HPF); Squamous Epithelial Cell Urine None Seen (0-5/HPF); Urine Volume 10mL (spun); WBC Urine 0-1/HPF (0-5/HPF)
[2024-06-15] MEDS: FUROSEMIDE 40 MG/4 ML VIAL IV (11:41)
[2024-06-15] MEDS: methylPREDNISolone 125 MG/2 ML VIAL IV (11:42)
[2024-06-15] MEDS: ALBUTEROL/IPRATROPIUM 3 ML AMPUL INH (11:55)
== END 2024-06-15 14:38 | disposition home or self-care (01) ==
PROVIDERS: Emergency Provider Emergency Medicine; PCP Internal Medicine
DX: R05.2 Subacute cough (principal); R06.02 Shortness of breath; Z79.01 Long term (current) use of anticoagulants; R09.82 Postnasal drip
CPT/HCPCS: 36415; 71045; 71250; 80053; 81003; 81015; 82550; 83605; 83690; 83735; 83880; 84484; 85025; 85610; 85730; 93005; 93010; 94640; 96374; 96375; 99284; J1940; J2919

== ENCOUNTER → 2024-06-20 13:28 | Outpatient (CLI) | payer MEDICARE, SELFPAY | LOC: RESP 13:28 | PROVIDERS: PCP Internal Medicine; Referring Provider Physician Assistant; Visit Provider Physician Assistant | DX: R06.09 Other forms of dyspnea (principal); R94.2 Abnormal results of pulmonary function studies | CPT/HCPCS: 94010; 94726; 94729 ==

== ENCOUNTER → 2024-11-08 15:24 | Outpatient (CLI) | payer MEDICARE, SELFPAY ==
--- NOTE | 2024-11-08 15:26 | DI.MG.S_ITS ---
MM screening mammo BI: 11/08/2024. BI-RADS: 2 CLINICAL: 78-year old female for bilateral screening mammogram. Tyrer-Cuzick lifetime risk of 4.3%. No personal or first-degree family history of breast cancer. History of ovarian cancer in one first-degree relative. PRIOR EXAMS 11/03/2023, 06/21/2019, 05/30/2018. MAMMOGRAPHY TECHNIQUE: 2D and 3D (tomosynthesis) digital mammographic views obtained, with additional images as needed for full coverage. Current study was also evaluated with a Computer Aided Detection (CAD) system. DENSITY C. The breasts are heterogeneously dense, which may obscure small masses. MAMMOGRAPHY FINDINGS Right: No suspicious mass, asymmetry, microcalcification, or other abnormality seen. No significant change from comparison. Left: Benign-appearing calcification noted on the left. There are no suspicious masses, calcifications, or other findings in the breast. No significant change from comparison. IMPRESSION: Right * No evidence of malignancy. Left * No evidence of malignancy with benign findings. RECOMMENDATIONS Bilateral * Annual screening mammography. OVERALL ASSESSMENT CATEGORY BI-RADS-2: Benign. The [employer] recommends annual screening mammography beginning at age 40 for women with average risk of breast cancer. ELECTRONICALLY SIGNED: Jolanta Wolf M.D. on 11/09/2024 at 03:30:30 PM PT Interpreting Station ID: [id number]
== END ==
PROVIDERS: PCP Internal Medicine; Referring Provider Internal Medicine; Visit Provider Internal Medicine
DX: Z12.31 Encounter for screening mammogram for malignant neoplasm of breast (principal); R92.333 Mammographic heterogeneous density, bilateral breasts; Z80.41 Family history of malignant neoplasm of ovary
CPT/HCPCS: 77063; 77067

== ENCOUNTER → 2025-04-09 13:29 | Outpatient (CLI) | payer MEDICARE, SELFPAY ==
--- NOTE | 2025-04-09 13:30 | DI.US.S_ITS ---
PROCEDURE: US ABDOMEN LIMITED INDICATIONS: right breast pain TECHNIQUE: Real-time focused scanning was performed of the chest wall, with image documentation. COMPARISON: None. FINDINGS: Patient indicates site of pain at right posterolateral back which has since resolved. No sonographic abnormalities in the dermal, subdermal, and muscular soft tissues in the area of concern. IMPRESSION: No abnormalities. Dictated by: Jolanta Wolf M.D. on 04/09/2025 at 18:03 Approved by: Jolanta Wolf M.D. on 04/09/2025 at 18:04
== END ==
LOC: MAMMO 13:29
PROVIDERS: PCP Internal Medicine; Referring Provider Internal Medicine; Visit Provider Internal Medicine
DX: N64.4 Mastodynia (principal)
CPT/HCPCS: 76705

== ENCOUNTER → 2025-05-17 15:10 | Outpatient (CLI) | payer MEDICARE, SELFPAY ==
--- NOTE | 2025-05-17 15:11 | DI.RAD.S_ITS ---
PROCEDURE: XR CHEST 2V
[2025-05-17 17:31] LABS: Hematocrit 37.9 % (36-46); Hemoglobin 12.6 g/dL (12.0-16.0); Mean Corpuscular HGB Conc 33.2 % (30-36); Mean Corpuscular Hemoglobin 29.3 PG (26-34); Mean Corpuscular Volume 88.1 fL (80-100); Platelet Count 265 X10^3/uL (150-400)
[2025-05-17 18:21] LABS: Alanine Aminotransferase 23 IU/L (<35); Albumin 4.1 g/dL (3.5-5.0); Albumin Globulin Ratio 1.4 (1.0-2.8); Alkaline Phosphatase 88 U/L (38-126); Blood Urea Nitrogen 34 mg/dL (7-17); Calcium 8.9 mg/dL (8.4-10.2); Carbon Dioxide 26 mmol/L (22-32); Chloride 100 mmol/L (98-107); Estimated Glomerular Filt Rate 21 mL/min (>60); Globulin 2.9 g/dL (1.7-4.1); Glucose 85 mg/dL (70-99); HEMOLYSIS < 15 (0-50); Potassium 4.4 mmol/L (3.4-5.1); Sodium 138 mmol/L (137-145); Total Protein 7.0 g/dL (6.3-8.2)
== END ==
PROVIDERS: PCP Internal Medicine; Referring Provider Internal Medicine; Visit Provider Internal Medicine
DX: J45.50 Severe persistent asthma, uncomplicated (principal); N18.4 Chronic kidney disease, stage 4 (severe)
CPT/HCPCS: 36415; 71046; 80053; 85027